=== PATIENT | female | born 1935 | race Caucasian/White ===

== ENCOUNTER 2018-02-05 19:24 | Emergency (ER) | payer MEDICARE ==
--- NOTE | 2018-02-05 20:42 | RAD ---
PA AND LATERAL CHEST: HISTORY: Cough. COMPARISON: 07/20/2012 FINDINGS: Heart size is at the upper limits of normal. There are atherosclerotic changes of the aorta. The jeanette ngs are clear of infiltrates. There are calcified right hilar and paratracheal nodes. IMPRESSION: Borderline heart size. No active intrathoracic disease. POS: [facility]
[2018-02-05 20:50] LABS: #Basophils 0.1 thou/uL (0.0-0.2); #Eosinphils 0.3 thou/uL (0.0-0.7); #Lymphocytes 1.9 thou/uL (1.20-3.40); #Monocytes 0.7 thou/uL (0.11-0.59); #Neutrophils 4.1 thou/uL (1.40-6.50); %Eosinophils 4.7 % (0.0-10.0); %Lymphocytes 27.3 % (21.0-51.0); %Monocytes 9.7 % (0.0-10.0); %Neutrophils 57.3 % (42.0-75.0); Hemoglobin 13.5 g/dL (12.0-16.0); Mean Corpuscular HGB CONC 34.5 g/dL (32.0-36.0); Mean Corpuscular Hemoglobin 31.2 pg (27.0-31.0); Mean Corpuscular Volume 90.5 fL (78.0-98.0); Mean Platelet Volume 9.1 fL (7.4-10.4); Platelet Count 243 thou/uL (130-400); RBC Distribution Width 12.2 % (11.5-14.5); Red Blood Cell (RBC) Count 4.34 mill/uL (4.20-5.40); White Blood Cell (WBC) Count 7.1 thou/uL (4.8-10.8)
[2018-02-05 21:06] LABS: ALT (SGPT) 13 U/L (8-55); AST (SGOT) 21 U/L (5-34); Alkaline Phosphatase 68 U/L (40-150); Anion Gap 13 mmol/L (10-20); BUN (Urea Nitrogen) 23 mg/dL (9.8-20.1); Bilirubin, Total 0.3 mg/dL (0.2-1.2); Calc. Creatinine Clearance 0 mL/min (70-130); Calcium 9.4 mg/dL (7.8-10.44); Carbon Dioxide 28 mmol/L (23-31); Chloride 95 mmol/L (98-107); Estimated GFR-MDRD 43; Glucose 91 mg/dL (83-110); Potassium 4.4 mmol/L (3.5-5.1); Sodium 132 mmol/L (136-145)
[2018-02-05 23:11] LABS: Bilirubin Negative (Negative); Blood, Urine Negative (Negative); Clarity CLEAR (Clear); Glucose, Urine (Dipstick) Negative (Negative); Leukocyte Small (Negative); Nitrite Negative (Negative); Protein, Urine (Dipstick) Negative (Neg-Trace); Specific Gravity, Urine 1.006 (1.002-1.036); Urobilinogen 0.2 mg/dL (0.2-1.0); pH, Urine 7.5 (5.0-9.0)
[2018-02-05 23:12] LABS: Bacteria/HPF None Seen HPF (None Seen); Hyaline Casts/LPF 0-3 HYALINE CAST LPF (0-3 Hyaline); Pathc Cast-AUWi Flag 0.72 (0-2.49); RBC/HPF 0-3 HPF (0-3); Squamous Epithelial 0-3 HPF (0-3)
--- NOTE | 2018-02-10 15:28 | EKG ---
Test Reason : Blood Pressure : / mmHG Vent. Rate : 066 BPM Atrial Rate : 066 BPM P-R Int : 156 ms QRS Dur : 084 ms QT Int : 416 ms P-R-T Axes : 036 -02 020 degrees QTc Int : 436 ms Normal sinus rhythm with sinus arrhythmia Cannot rule out Anterior infarct , age undetermined Abnormal ECG Confirmed by MIRTHA VERDUZCO M.D. ([id number]), editorial assistant DEANNA CASTILLO ([id number]) on 02/10/2018 3:28:21 PM Referred By: Confirmed By:MIRTHA VERDUZCO M.D.
== END 2018-02-06 00:05 | disposition home or self-care (01) ==
LOC: ERS 19:24
DX: J06.9 Acute upper respiratory infection, unspecified (principal); J44.9 Chronic obstructive pulmonary disease, unspecified; Z87.891 Personal history of nicotine dependence; Z79.899 Other long term (current) drug therapy
CPT/HCPCS: 71046; 80053; 81003; 81015; 85025; 87086; 93005; 94640; J7620

== ENCOUNTER 2019-03-03 13:14 | Emergency (ER) | payer MEDICARE, MEDICAID ==
[2019-03-03] MEDS ORDERED: Albuterol Sulfate 2.5 mg/3 ml Neb ONE (13:56)
--- NOTE | 2019-03-03 14:00 | RAD ---
EXAM: Portable chest PROVIDED CLINICAL HISTORY: Cough COMPARISON: 05/17/2018 FINDINGS: Cardiac and mediastinal silhouette is within normal limits. No focal consolidation, pleural fluid or pneumothorax evident. IMPRESSION: No evidence for an acute cardiopulmonary process.
[2019-03-03 14:03] LABS: #Basophils 0.1 thou/uL (0.0-0.2); #Eosinphils 0.1 thou/uL (0.0-0.7); #Lymphocytes 1.6 thou/uL (1.20-3.40); #Monocytes 0.9 thou/uL (0.11-0.59); #Neutrophils 6.2 thou/uL (1.40-6.50); %Lymphocytes 17.5 % (21.0-51.0); %Monocytes 10.4 % (0.0-10.0); Hemoglobin 12.8 g/dL (12.0-16.0); Mean Corpuscular HGB CONC 32.7 g/dL (32.0-36.0); Mean Corpuscular Hemoglobin 29.2 pg (27.0-31.0); Mean Corpuscular Volume 89.2 fL (78.0-98.0); Mean Platelet Volume 8.8 fL (7.4-10.4); Platelet Count 268 thou/uL (130-400); RBC Distribution Width 12.1 % (11.5-14.5); Red Blood Cell (RBC) Count 4.39 mill/uL (4.20-5.40); White Blood Cell (WBC) Count 8.8 thou/uL (4.8-10.8)
[2019-03-03 14:04] LABS: Actual Bicarbonate (HCO3a) 27.1 mEq/L (22-28); Analyzer IN Cardio ER; Base Excess (BEa) 2.3 mEq/L (-2.0 to +3.0); CO2 Tension 42.4 mmHg (35.0-45.0); Calcium, Ionized 1.22 mmol/L (1.12-1.30); Carboxyhemoglobin (COHb) 0.6 gm% (0.0-3.0); Hemoglobin (Hb) 13.4 g/dL (12.0-16.0); O2 Tension (PaO2) 66.9 mmHg (> 60.0); Potassium - ABG Lab 3.98 mmol/L (3.70-5.30); pH, Arterial 7.42 (7.35-7.45)
[2019-03-03 14:06] LABS: Puncture Site RRA
[2019-03-03] MEDS ORDERED: Dexamethasone 4 mg/ml Vial ONE (14:22)
[2019-03-03 14:27] LABS: ALT (SGPT) 10 U/L (8-55); AST (SGOT) 16 U/L (5-34); Albumin 3.9 g/dL (3.4-4.8); Alkaline Phosphatase 77 U/L (40-110); Anion Gap 11 mmol/L (10-20); BUN (Urea Nitrogen) 19 mg/dL (9.8-20.1); Bilirubin, Total 0.5 mg/dL (0.2-1.2); Calc. Creatinine Clearance 0 mL/min (70-130); Calcium 9.3 mg/dL (7.8-10.44); Carbon Dioxide 28 mmol/L (23-31); Chloride 100 mmol/L (98-107); Estimated GFR-MDRD 52; Globulin 3.3 g/dL (2.4-3.5); Glucose 104 mg/dL (83-110); Potassium 4.4 mmol/L (3.5-5.1); Protein, Total 7.2 g/dL (6.0-8.3); Sodium 135 mmol/L (136-145)
== END 2019-03-03 15:21 | disposition home or self-care (01) ==
LOC: ERS 13:14
DX: J44.1 Chronic obstructive pulmonary disease with (acute) exacerbation (principal); M79.7 Fibromyalgia; F41.9 Anxiety disorder, unspecified; F32.9 Major depressive disorder, single episode, unspecified; Z87.891 Personal history of nicotine dependence
CPT/HCPCS: 36415; 71045; 80053; 82805; 83880; 84484; 85025; 87804; 93005; 94644; 96374; J1100; J7611; J7620

== ENCOUNTER 2020-08-21 16:58 | Emergency (ER) | payer MEDICARE, MEDICAID ==
[2020-08-21 18:29] LABS: #Basophils 0.1 thou/uL (0.0-0.2); #Eosinphils 0.2 thou/uL (0.0-0.7); #Lymphocytes 1.7 thou/uL (1.20-3.40); #Monocytes 0.6 thou/uL (0.11-0.59); %Basophils 0.8 % (0.0-1.0); %Eosinophils 2.2 % (0.0-10.0); %Lymphocytes 22.7 % (21.0-51.0); %Monocytes 7.7 % (0.0-10.0); %Neutrophils 66.7 % (42.0-75.0); Hemoglobin 13.8 g/dL (12.0-16.0); Mean Corpuscular HGB CONC 32.3 g/dL (32.0-36.0); Mean Corpuscular Hemoglobin 29.6 pg (27.0-31.0); Mean Corpuscular Volume 91.5 fL (78.0-98.0); Mean Platelet Volume 9.8 fL (7.4-10.4); Platelet Count 270 thou/uL (130-400); RBC Distribution Width 13.1 % (11.5-14.5); Red Blood Cell (RBC) Count 4.67 mill/uL (4.20-5.40); White Blood Cell (WBC) Count 7.5 thou/uL (4.8-10.8)
[2020-08-21 18:51] LABS: ALT (SGPT) 34 U/L (8-55); AST (SGOT) 39 U/L (5-34); Albumin 4.5 g/dL (3.4-4.8); Alkaline Phosphatase 101 U/L (40-110); Anion Gap 14 mmol/L (10-20); BUN (Urea Nitrogen) 15 mg/dL (9.8-20.1); Bilirubin, Total 0.6 mg/dL (0.2-1.2); Calc. Creatinine Clearance 0 mL/min (70-130); Calcium 9.7 mg/dL (7.8-10.44); Carbon Dioxide 29 mmol/L (23-31); Chloride 95 mmol/L (98-107); Globulin 4.3 g/dL (2.4-3.5); Glucose 105 mg/dL (83-110); Potassium 4.5 mmol/L (3.5-5.1); Protein, Total 8.8 g/dL (5.8-8.1); Sodium 133 mmol/L (136-145)
[2020-08-21] MEDS ORDERED: Furosemide 40 MG/4 ML VIAL ONE (20:16)
== END 2020-08-21 21:25 | disposition home or self-care (01) ==
LOC: ERS 16:58
DX: I13.0 Hypertensive heart and chronic kidney disease with heart failure and stage 1 through stage 4 chronic kidney disease, or unspecified chronic kidney disease (principal); I50.9 Heart failure, unspecified; N18.30 Chronic kidney disease, stage 3 unspecified; R06.2 Wheezing; K90.0 Celiac disease; J44.9 Chronic obstructive pulmonary disease, unspecified; Z87.891 Personal history of nicotine dependence; Z79.899 Other long term (current) drug therapy; Z79.82 Long term (current) use of aspirin
CPT/HCPCS: 36415; 71045; 80053; 83880; 84484; 85025; 93005; 96374; J1940; J7620

== ENCOUNTER 2021-01-20 19:55 | Emergency (ER) | payer MEDICARE, OTHER ==
[~2021-01-20 19:55] MED LIST: Iopamidol-370 76% 500 ML 1 ML ONE
[2021-01-20] MEDS ORDERED: Pantoprazole 40 MG VIAL ONE (21:58)
[2021-01-20 22:00] LABS: Bilirubin Negative (Negative); Blood, Urine 3+ (Negative); Clarity Clear (Clear); Glucose, Urine (Dipstick) Normal (Negative); Ketone, Urine Negative (Negative); Leukocyte 75 Leu/uL (Negative); Nitrite Negative (Negative); Protein, Urine (Dipstick) Negative (Neg-Trace); RBC/HPF 0-3 HPF (0-3); Specific Gravity, Urine 1.007 (1.002-1.036); Squamous Epithelial 0-3 HPF (0-3); Urobilinogen Normal mg/dL (Less than 2); pH, Urine 7.5 (5.0-9.0)
[2021-01-20 22:05] LABS: #Basophils 0.1 thou/uL (0.0-0.2); #Eosinphils 0.2 thou/uL (0.0-0.7); #Lymphocytes 2.1 thou/uL (1.20-3.40); #Monocytes 0.7 thou/uL (0.11-0.59); %Basophils 0.6 % (0.0-1.0); %Eosinophils 2.6 % (0.0-10.0); %Lymphocytes 25.8 % (21.0-51.0); %Monocytes 8.8 % (0.0-10.0); %Neutrophils 62.2 % (42.0-75.0); Hemoglobin 13.8 g/dL (12.0-16.0); Mean Corpuscular HGB CONC 32.4 g/dL (32.0-36.0); Mean Corpuscular Hemoglobin 31.2 pg (27.0-31.0); Mean Corpuscular Volume 96.3 fL (78.0-98.0); Platelet Count 298 thou/uL (130-400); RBC Distribution Width 12.5 % (11.5-14.5); Red Blood Cell (RBC) Count 4.43 mill/uL (4.20-5.40)
[2021-01-20 22:07] LABS: AST (SGOT) 20 U/L (5-34); Albumin 3.4 g/dL (3.4-4.8); Alkaline Phosphatase 68 U/L (40-110); Anion Gap 11 mmol/L (10-20); BUN (Urea Nitrogen) 11 mg/dL (9.8-20.1); Bilirubin, Total 0.2 mg/dL (0.2-1.2); Calc. Creatinine Clearance 0 mL/min (70-130); Calcium 9.3 mg/dL (7.8-10.44); Carbon Dioxide 25 mmol/L (23-31); Chloride 99 mmol/L (98-107); Globulin 4.1 g/dL (2.4-3.5); Glucose 95 mg/dL (83-110); Potassium 4.5 mmol/L (3.5-5.1); Protein, Total 7.5 g/dL (5.8-8.1); Sodium 130 mmol/L (136-145)
[2021-01-20 22:09] LABS: Bacteria/HPF 1+ HPF (None Seen); WBC/HPF 0-3 HPF (0-3)
[2021-01-20 22:16] LABS: ALT (SGPT) 14 U/L (8-55); Lipase 56 U/L (8-78)
[2021-01-20 22:34] LABS: INR-International Normal Ratio 0.9; PTT 31.9 sec (22.9-36.1); Prothrombin Time 12.2 sec (12.0-14.7)
[2021-01-21 00:30] LABS: Hemoglobin 13.3 g/dL (12.0-16.0)
== END 2021-01-21 01:03 | disposition home or self-care (01) ==
LOC: ERS 19:55
DX: K92.2 Gastrointestinal hemorrhage, unspecified (principal); I13.0 Hypertensive heart and chronic kidney disease with heart failure and stage 1 through stage 4 chronic kidney disease, or unspecified chronic kidney disease; I50.9 Heart failure, unspecified; N18.30 Chronic kidney disease, stage 3 unspecified; J44.9 Chronic obstructive pulmonary disease, unspecified; Z87.891 Personal history of nicotine dependence; Z79.899 Other long term (current) drug therapy
CPT/HCPCS: 36415; 74177; 80053; 81003; 81015; 83690; 83735; 85025; 85610; 85730; 86850; 86900; 86901; 93005; 96374; C9113; Q9967

== ENCOUNTER 2022-01-01 01:18 | Emergency (ER) | payer MEDICARE ==
[2022-01-01 02:07] LABS: #Eosinphils 0.1 thou/uL (0.0-0.7); #Lymphocytes 1.8 thou/uL (1.20-3.40); #Monocytes 0.8 thou/uL (0.11-0.59); #Neutrophils 6.8 thou/uL (1.40-6.50); %Basophils 0.4 % (0.0-1.0); %Eosinophils 1.4 % (0.0-10.0); %Lymphocytes 18.9 % (21.0-51.0); %Monocytes 8.6 % (0.0-10.0); %Neutrophils 70.7 % (42.0-75.0); Hemoglobin 12.9 g/dL (12.0-16.0); Mean Corpuscular HGB CONC 32.6 g/dL (32.0-36.0); Mean Corpuscular Hemoglobin 30.6 pg (27.0-31.0); Mean Platelet Volume 9.7 fL (7.4-10.4); Platelet Count 284 10x3/uL (130-400); RBC Distribution Width 12.3 % (11.5-14.5); Red Blood Cell (RBC) Count 4.21 mill/uL (4.20-5.40); White Blood Cell (WBC) Count 9.6 10x3/uL (4.8-10.8)
[2022-01-01 02:28] LABS: ALT (SGPT) 19 U/L (8-55); AST (SGOT) 18 U/L (5-34); Albumin 3.6 g/dL (3.4-4.8); Alkaline Phosphatase 82 U/L (40-110); Anion Gap 10 mmol/L (10-20); BUN (Urea Nitrogen) 16 mg/dL (9.8-20.1); Bilirubin, Total 0.3 mg/dL (0.2-1.2); Calc. Creatinine Clearance 0 mL/min (70-130); Calcium 9.3 mg/dL (7.8-10.44); Carbon Dioxide 31 mmol/L (23-31); Chloride 103 mmol/L (98-107); Estimated GFR 48; Globulin 4.1 g/dL (2.4-3.5); Glucose 111 mg/dL (83-110); Protein, Total 7.7 g/dL (5.8-8.1); Sodium 140 mmol/L (136-145)
[2022-01-01 03:41] LABS: Bilirubin Negative (Negative); Blood, Urine Negative (Negative); Clarity Clear (Clear); Glucose, Urine (Dipstick) Normal (Negative); Ketone, Urine Negative (Negative); Leukocyte Negative Leu/uL (Negative); Nitrite Negative (Negative); Protein, Urine (Dipstick) Negative (Neg-Trace); Specific Gravity, Urine 1.007 (1.002-1.036); Urobilinogen Normal mg/dL (Less than 2); pH, Urine 7.5 (5.0-9.0)
== END 2022-01-01 04:50 ==
LOC: ERS 01:18
DX: R60.0 Localized edema (principal); I13.0 Hypertensive heart and chronic kidney disease with heart failure and stage 1 through stage 4 chronic kidney disease, or unspecified chronic kidney disease; I50.9 Heart failure, unspecified; N18.30 Chronic kidney disease, stage 3 unspecified; J44.9 Chronic obstructive pulmonary disease, unspecified; Z79.899 Other long term (current) drug therapy
CPT/HCPCS: 71045; 72170; 80053; 81003; 83880; 85025; 93005

== ENCOUNTER 2022-02-07 12:34 | Inpatient (IN) | payer MEDICARE, MEDICAID ==
[2022-02-07 13:16] LABS: #Eosinphils 0.3 thou/uL (0.0-0.7); #Lymphocytes 1.6 thou/uL (1.20-3.40); #Monocytes 1.1 thou/uL (0.11-0.59); #Neutrophils 6.3 thou/uL (1.40-6.50); %Basophils 0.4 % (0.0-1.0); %Eosinophils 3.7 % (0.0-10.0); %Lymphocytes 17.3 % (21.0-51.0); %Monocytes 12.1 % (0.0-10.0); %Neutrophils 66.5 % (42.0-75.0); Hemoglobin 12.8 g/dL (12.0-16.0); Mean Corpuscular HGB CONC 34.9 g/dL (32.0-36.0); Mean Corpuscular Hemoglobin 32.1 pg (27.0-31.0); Mean Corpuscular Volume 91.9 fl (78.0-98.0); Mean Platelet Volume 8.6 fL (7.4-10.4); Platelet Count 362 10x3/uL (130-400); RBC Distribution Width 12.7 % (11.5-14.5); Red Blood Cell (RBC) Count 3.99 mill/uL (4.20-5.40); White Blood Cell (WBC) Count 9.4 10x3/uL (4.8-10.8)
[2022-02-07 13:19] LABS: Actual Bicarbonate (HCO3v) 32 mEq/L (22-28); Analyzer IN Cardio ER; Base Excess 6.6 mEq/L (-2.0 to +3.0); Calcium, Ionized (venous) 1.14 mmol/L (1.16-1.32); Chloride (VBG) 96 mmol/L (98-106); Hemoglobin (Hb) 13.4 g/dL (11.7-16.1); pH (venous) 7.43 (7.32-7.43)
[2022-02-07 13:39] LABS: ALT (SGPT) 22 U/L (8-55); AST (SGOT) 22 U/L (5-34); Albumin 3.1 g/dL (3.4-4.8); Alkaline Phosphatase 98 U/L (40-110); Anion Gap 13 mmol/L (10-20); BUN (Urea Nitrogen) 5 mg/dL (9.8-20.1); Bilirubin, Total 0.6 mg/dL (0.2-1.2); Calc. Creatinine Clearance 0 mL/min (70-130); Calcium 9.5 mg/dL (7.8-10.44); Carbon Dioxide 28 mmol/L (23-31); Estimated GFR 68; Globulin 4.7 g/dL (2.4-3.5); Glucose 125 mg/dL (83-110); Potassium 3.6 mmol/L (3.5-5.1); Protein, Total 7.8 g/dL (5.8-8.1); Sodium 133 mmol/L (136-145)
[2022-02-07 13:42] LABS: Chloride 96 mmol/L (98-107)
[2022-02-07 13:47] LABS: SARS-CoV-2 NAA Rapid Test Not Detected (NotDetected)
[2022-02-07] MEDS ORDERED: Sodium Chloride 0.9% 100 ML ONE (14:40)
[2022-02-07] MEDS ORDERED: cefTRIAXone\\ROCEPHIN 1 GM VIAL ONE (14:40)
[2022-02-07] MEDS ORDERED: Enoxaparin Sodium 40 MG/0.4 ML SYRINGE SC SCH (14:45)
[2022-02-07] MEDS ORDERED: Non-Formulary Item 1 EACH (Acetaminophen [Tylenol] 325 MG Capsule) PO PRN (14:56)
[2022-02-07] MEDS ORDERED: Albuterol 200 PUFF (6.7GM INHALER) INH PRN (14:56)
[2022-02-07] MEDS ORDERED: Azithromycin 500 MG VIAL ONE (15:15)
[2022-02-07] MEDS ORDERED: Furosemide 20 MG/2 ML VIAL SLOW IVP SCH (15:30)
[2022-02-07 15:34] LABS: Phosphorus 2.8 mg/dL (2.3-4.7)
[2022-02-07 18:31] VITALS: BMI 47.9
[2022-02-07] MEDS: Mometasone/Formoterol 200/5 60 PUFF INH SCH (19:04)
[2022-02-07] MEDS: Nystatin Powder 15 GM BOT TOP SCH (21:00)
[2022-02-07] MEDS ORDERED: Non-Formulary Item 1 EACH (Fluticasone Propion/Salmeterol [Advair Diskus 250/50] 1 EACH B INH SCH (21:00)
[2022-02-07] MEDS: Carvedilol 6.25 MG TAB PO SCH (21:41)
[2022-02-07] MEDS: methylPREDNISolone Sod Succ 40 MG VIAL IVP SCH (21:42)
[2022-02-07] MEDS: Famotidine 20 MG TAB PO SCH (21:42)
[2022-02-08] MEDS: methylPREDNISolone Sod Succ 40 MG VIAL IVP SCH ×4 (00:06→21:42)
[2022-02-08] MEDS: ALPRAZolam 0.5 MG TAB PO PRN ×2 (03:12→21:55)
[2022-02-08] MEDS: Levothyroxine Sodium 100 MCG TAB PO SCH (05:25)
[2022-02-08] MEDS: Mometasone/Formoterol 200/5 60 PUFF INH SCH ×2 (08:02→19:02)
[2022-02-08] MEDS ORDERED: Furosemide 40 MG TAB PO SCH (09:00)
[2022-02-08] MEDS: Carvedilol 6.25 MG TAB PO SCH ×2 (11:04→18:31)
[2022-02-08] MEDS: Cyanocobalamin (Vitamin B-12) 1,000 MCG TAB PO SCH (11:10)
[2022-02-08] MEDS: Calcium Carbonate 600 MG + Vit D TAB PO SCH (11:11)
[2022-02-08] MEDS: Mirtazapine 15 MG Soltab PO SCH (11:12)
[2022-02-08] MEDS: Saccharomyces boulardii 250 MG CAP PO SCH (11:13)
[2022-02-08] MEDS: Enoxaparin Sodium 40 MG/0.4 ML SYRINGE SC SCH (11:15)
[2022-02-08] MEDS: Multivitamin W/ Minerals 1 TAB PO SCH (11:15)
[2022-02-08] MEDS: Famotidine 20 MG TAB PO SCH (11:15)
[2022-02-08] MEDS: Nystatin Powder 15 GM BOT TOP SCH ×2 (11:16→21:43)
[2022-02-08 11:33] LABS: Actual Bicarbonate (HCO3v) 29 mEq/L (22-28); Base Excess 4.2 mEq/L (-2.0 to +3.0); Calcium, Ionized (venous) 1.14 mmol/L (1.16-1.32); Chloride (VBG) 96 mmol/L (98-106); Hemoglobin (Hb) 12.7 g/dL (11.7-16.1); Potassium (VBG) 3.97 mmol/L (3.70-5.30); Sodium 133.8 mmol/L (133-146); pH (venous) 7.44 (7.32-7.43)
[2022-02-08] MEDS: Acetaminophen 500 MG TAB PO PRN (11:34)
[2022-02-08] MEDS: guaiFENesin ER 600 MG TAB PO SCH (21:43)
[2022-02-09] MEDS ORDERED: Sodium Chloride 0.65% Nasal 44 ML BOT EA NARE PRN (00:51)
[2022-02-09] MEDS ORDERED: Polyethylene Glycol OPTH DROP 15 ML BOT EA EYE PRN (00:52)
[2022-02-09] MEDS: Acetaminophen 500 MG TAB PO PRN (01:32)
[2022-02-09 05:04] LABS: #Lymphocytes 1.1 thou/uL (1.20-3.40); #Monocytes 0.4 thou/uL (0.11-0.59); %Eosinophils 0.1 % (0.0-10.0); %Lymphocytes 10.8 % (21.0-51.0); %Monocytes 3.4 % (0.0-10.0); %Neutrophils 85.6 % (42.0-75.0); Hemoglobin 11.2 g/dL (12.0-16.0); Mean Corpuscular HGB CONC 31.6 g/dL (32.0-36.0); Mean Corpuscular Hemoglobin 28.9 pg (27.0-31.0); Mean Corpuscular Volume 91.4 fl (78.0-98.0); Mean Platelet Volume 9.4 fL (7.4-10.4); Platelet Count 383 10x3/uL (130-400); RBC Distribution Width 12.8 % (11.5-14.5); Red Blood Cell (RBC) Count 3.87 mill/uL (4.20-5.40); White Blood Cell (WBC) Count 10.5 10x3/uL (4.8-10.8)
[2022-02-09 05:13] LABS: Anion Gap 10 mmol/L (10-20); BUN (Urea Nitrogen) 11 mg/dL (9.8-20.1); Calc. Creatinine Clearance 84 mL/min (70-130); Calcium 9.6 mg/dL (7.8-10.44); Carbon Dioxide 30 mmol/L (23-31); Chloride 96 mmol/L (98-107); Estimated GFR 70; Glucose 162 mg/dL (83-110); Potassium 4.3 mmol/L (3.5-5.1); Sodium 132 mmol/L (136-145)
[2022-02-09] MEDS: Mometasone/Formoterol 200/5 60 PUFF INH SCH ×2 (05:24→18:39)
[2022-02-09] MEDS: Levothyroxine Sodium 100 MCG TAB PO SCH (06:17)
[2022-02-09] MEDS: Carvedilol 6.25 MG TAB PO SCH ×2 (10:30→18:23)
[2022-02-09] MEDS: Cyanocobalamin (Vitamin B-12) 1,000 MCG TAB PO SCH (10:30)
[2022-02-09] MEDS: Enoxaparin Sodium 40 MG/0.4 ML SYRINGE SC SCH (10:30)
[2022-02-09] MEDS: Calcium Carbonate 600 MG + Vit D TAB PO SCH (10:30)
[2022-02-09] MEDS: Furosemide 40 MG TAB PO SCH ×2 (10:31→14:54)
[2022-02-09] MEDS: methylPREDNISolone Sod Succ 40 MG VIAL IVP SCH (10:32)
[2022-02-09] MEDS: guaiFENesin ER 600 MG TAB PO SCH ×2 (10:32→21:02)
[2022-02-09] MEDS: Nystatin Powder 15 GM BOT TOP SCH ×2 (10:33→21:02)
[2022-02-09] MEDS: Multivitamin W/ Minerals 1 TAB PO SCH (10:33)
[2022-02-09] MEDS: Mirtazapine 15 MG Soltab PO SCH (10:33)
[2022-02-09] MEDS: Saccharomyces boulardii 250 MG CAP PO SCH (10:34)
[2022-02-09] MEDS: Acetaminophen 325 MG TAB PO PRN (10:52)
[2022-02-09] MEDS ORDERED: ALPRAZolam 0.5 MG TAB PO PRN (13:24)
[2022-02-09] MEDS ORDERED: hydrALAZINE 25 MG TAB PO PRN (13:25)
[2022-02-09] MEDS ORDERED: Amlodipine 10 MG TAB PO SCH (13:30)
[2022-02-09] MEDS: ALPRAZolam 0.5 MG TAB PO PRN (14:54)
[2022-02-09] MEDS: predniSONE 20 MG TAB PO SCH (18:23)
[2022-02-10] MEDS: ALPRAZolam 0.5 MG TAB PO PRN ×2 (01:58→14:22)
[2022-02-10] MEDS: Levothyroxine Sodium 100 MCG TAB PO SCH (05:55)
[2022-02-10] MEDS: Mometasone/Formoterol 200/5 60 PUFF INH SCH ×2 (07:21→18:38)
[2022-02-10 07:26] LABS: #Lymphocytes 1.4 thou/uL (1.20-3.40); #Monocytes 0.8 thou/uL (0.11-0.59); %Basophils 0.3 % (0.0-1.0); %Eosinophils 0.1 % (0.0-10.0); %Lymphocytes 12.6 % (21.0-51.0); %Monocytes 6.9 % (0.0-10.0); %Neutrophils 80.1 % (42.0-75.0); Hemoglobin 11.8 g/dL (12.0-16.0); Mean Corpuscular HGB CONC 31.9 g/dL (32.0-36.0); Mean Corpuscular Hemoglobin 29.2 pg (27.0-31.0); Mean Corpuscular Volume 91.6 fl (78.0-98.0); Mean Platelet Volume 9.2 fL (7.4-10.4); Platelet Count 419 10x3/uL (130-400); Red Blood Cell (RBC) Count 4.03 mill/uL (4.20-5.40); White Blood Cell (WBC) Count 11.2 10x3/uL (4.8-10.8)
[2022-02-10 07:37] LABS: Anion Gap 11 mmol/L (10-20); BUN (Urea Nitrogen) 18 mg/dL (9.8-20.1); Calc. Creatinine Clearance 71 mL/min (70-130); Calcium 9.6 mg/dL (7.8-10.44); Carbon Dioxide 31 mmol/L (23-31); Chloride 100 mmol/L (98-107); Estimated GFR 57; Glucose 119 mg/dL (83-110); Sodium 138 mmol/L (136-145)
[2022-02-10] MEDS: Saccharomyces boulardii 250 MG CAP PO SCH (08:11)
[2022-02-10] MEDS: Mirtazapine 15 MG Soltab PO SCH (08:11)
[2022-02-10] MEDS: guaiFENesin ER 600 MG TAB PO SCH ×2 (08:11→20:51)
[2022-02-10] MEDS: Carvedilol 6.25 MG TAB PO SCH ×2 (08:11→16:18)
[2022-02-10] MEDS: Amlodipine 10 MG TAB PO SCH (08:11)
[2022-02-10] MEDS: Calcium Carbonate 600 MG + Vit D TAB PO SCH (08:12)
[2022-02-10] MEDS: Multivitamin W/ Minerals 1 TAB PO SCH (08:12)
[2022-02-10] MEDS: Furosemide 40 MG TAB PO SCH ×2 (08:12→13:27)
[2022-02-10] MEDS: Cyanocobalamin (Vitamin B-12) 1,000 MCG TAB PO SCH (08:12)
[2022-02-10] MEDS: predniSONE 20 MG TAB PO SCH ×2 (08:12→16:18)
[2022-02-10] MEDS: Nystatin Powder 15 GM BOT TOP SCH ×2 (08:12→20:53)
[2022-02-10] MEDS: Enoxaparin Sodium 40 MG/0.4 ML SYRINGE SC SCH (08:12)
[2022-02-10] MEDS: Acetaminophen 325 MG TAB PO PRN (18:26)
[2022-02-11] MEDS: Levothyroxine Sodium 100 MCG TAB PO SCH (04:43)
[2022-02-11 06:23] LABS: #Lymphocytes 2.4 thou/uL (1.20-3.40); #Monocytes 1.2 thou/uL (0.11-0.59); #Neutrophils 8.3 thou/uL (1.40-6.50); %Basophils 0.1 % (0.0-1.0); %Eosinophils 0.1 % (0.0-10.0); %Lymphocytes 20.3 % (21.0-51.0); %Monocytes 9.8 % (0.0-10.0); %Neutrophils 69.7 % (42.0-75.0); Hemoglobin 12.7 g/dL (12.0-16.0); Mean Corpuscular HGB CONC 31.7 g/dL (32.0-36.0); Mean Corpuscular Volume 91.3 fl (78.0-98.0); Platelet Count 425 10x3/uL (130-400); RBC Distribution Width 13.2 % (11.5-14.5); Red Blood Cell (RBC) Count 4.39 mill/uL (4.20-5.40); White Blood Cell (WBC) Count 11.9 10x3/uL (4.8-10.8)
[2022-02-11 06:39] LABS: Anion Gap 10 mmol/L (10-20); BUN (Urea Nitrogen) 23 mg/dL (9.8-20.1); Calc. Creatinine Clearance 59 mL/min (70-130); Calcium 9.4 mg/dL (7.8-10.44); Carbon Dioxide 27 mmol/L (23-31); Chloride 101 mmol/L (98-107); Estimated GFR 46; Glucose 110 mg/dL (83-110); Potassium 3.8 mmol/L (3.5-5.1); Sodium 134 mmol/L (136-145)
[2022-02-11] MEDS: Furosemide 40 MG TAB PO SCH ×2 (08:02→13:57)
[2022-02-11] MEDS: Amlodipine 10 MG TAB PO SCH (08:02)
[2022-02-11] MEDS: Enoxaparin Sodium 40 MG/0.4 ML SYRINGE SC SCH (08:02)
[2022-02-11] MEDS: guaiFENesin ER 600 MG TAB PO SCH (08:02)
[2022-02-11] MEDS: Cyanocobalamin (Vitamin B-12) 1,000 MCG TAB PO SCH (08:02)
[2022-02-11] MEDS: Multivitamin W/ Minerals 1 TAB PO SCH (08:02)
[2022-02-11] MEDS: Carvedilol 6.25 MG TAB PO SCH ×2 (08:02→16:36)
[2022-02-11] MEDS: Saccharomyces boulardii 250 MG CAP PO SCH (08:02)
[2022-02-11] MEDS: Calcium Carbonate 600 MG + Vit D TAB PO SCH (08:03)
[2022-02-11] MEDS: Nystatin Powder 15 GM BOT TOP SCH (08:03)
[2022-02-11] MEDS: Mirtazapine 15 MG Soltab PO SCH (08:03)
[2022-02-11] MEDS: predniSONE 20 MG TAB PO SCH ×2 (08:03→16:36)
[2022-02-11 08:25] VITALS: TEMP 98.3
[2022-02-11] MEDS: Mometasone/Formoterol 200/5 60 PUFF INH SCH ×2 (08:57→18:24)
[2022-02-11] MEDS ORDERED: FLU VACC QS2022-23(65YR UP)/PF 240 MCG/0.7 ML SYRINGE IM ONE (09:00)
[2022-02-11] MEDS: ALPRAZolam 0.5 MG TAB PO PRN (09:44)
[2022-02-11 16:38] VITALS: BP 157/98
[2022-02-12] MEDS ORDERED: Furosemide 40 MG TAB PO SCH (07:30)
== END 2022-02-11 19:40 | DRG 177 ==
LOC: ERS 12:34 → SUATTDRO 12:34 → 2NO 14:35 → OBSVTOIN 15:03 → T4-B 02-09 20:52
PROVIDERS: ADMIT Internal Medicine; ATTEND Hospitalist
DX: J69.0 Pneumonitis due to inhalation of food and vomit (principal); I50.33 Acute on chronic diastolic (congestive) heart failure; J96.01 Acute respiratory failure with hypoxia; I13.0 Hypertensive heart and chronic kidney disease with heart failure and stage 1 through stage 4 chronic kidney disease, or unspecified chronic kidney disease; J44.1 Chronic obstructive pulmonary disease with (acute) exacerbation; Z68.42 Body mass index [BMI] 45.0-49.9, adult; Z20.822 Contact with and (suspected) exposure to COVID-19; K90.0 Celiac disease; F41.8 Other specified anxiety disorders; N18.30 Chronic kidney disease, stage 3 unspecified; M79.7 Fibromyalgia; K21.9 Gastro-esophageal reflux disease without esophagitis; E66.01 Morbid (severe) obesity due to excess calories; F32.A Depression, unspecified; Z87.891 Personal history of nicotine dependence; Z88.0 Allergy status to penicillin; Z88.2 Allergy status to sulfonamides; Z88.5 Allergy status to narcotic agent; Z88.8 Allergy status to other drugs, medicaments and biological substances; Z79.899 Other long term (current) drug therapy; Z79.51 Long term (current) use of inhaled steroids; Z79.890 Hormone replacement therapy; Z90.49 Acquired absence of other specified parts of digestive tract
CPT/HCPCS: 36415; 36416; 71045; 80048; 80053; 82805; 83605; 83735; 83880; 84100; 84145; 84484; 85025; 85379; 87040; 93005; 94640; 94664; 96365; 96367; J0456; J0696; J1650; J1956; J2920; J3490; J7512; J7620

== ENCOUNTER 2022-05-14 05:21 | Inpatient (IN) | payer MEDICARE, MEDICAID ==
[2022-05-14 06:10] LABS: #Eosinphils 0.2 thou/uL (0.0-0.7); #Lymphocytes 1.8 thou/uL (1.20-3.40); #Monocytes 0.9 thou/uL (0.11-0.59); #Neutrophils 5.3 thou/uL (1.40-6.50); %Basophils 0.6 % (0.0-1.0); %Eosinophils 2.1 % (0.0-10.0); %Lymphocytes 22.2 % (21.0-51.0); %Neutrophils 64.1 % (42.0-75.0); Hemoglobin 12.7 g/dL (12.0-16.0); Mean Corpuscular HGB CONC 31.4 g/dL (32.0-36.0); Mean Corpuscular Hemoglobin 26.8 pg (27.0-31.0); Mean Corpuscular Volume 85.1 fl (78.0-98.0); Mean Platelet Volume 9.3 fL (7.4-10.4); Platelet Count 286 10x3/uL (130-400); Red Blood Cell (RBC) Count 4.76 mill/uL (4.20-5.40); White Blood Cell (WBC) Count 8.3 10x3/uL (4.8-10.8)
[2022-05-14 06:33] LABS: ALT (SGPT) 15 U/L (8-55); AST (SGOT) 20 U/L (5-34); Albumin 3.8 g/dL (3.4-4.8); Alkaline Phosphatase 75 U/L (40-110); Anion Gap 10 mmol/L (10-20); BUN (Urea Nitrogen) 27 mg/dL (9.8-20.1); Bilirubin, Total 0.4 mg/dL (0.2-1.2); Calc. Creatinine Clearance 0 mL/min (70-130); Carbon Dioxide 31 mmol/L (23-31); Chloride 92 mmol/L (98-107); Estimated GFR 30; Globulin 4.3 g/dL (2.4-3.5); Glucose 96 mg/dL (83-110); Potassium 2.7 mmol/L (3.5-5.1); Protein, Total 8.1 g/dL (5.8-8.1); Sodium 130 mmol/L (136-145)
[2022-05-14 07:21] LABS: Bacteria/HPF None Seen HPF (None Seen); Bilirubin Negative (Negative); Blood, Urine 2+ (Negative); Clarity Clear (Clear); Glucose, Urine (Dipstick) Normal (Negative); Ketone, Urine Negative (Negative); Leukocyte 25 Leu/uL (Negative); Nitrite Negative (Negative); Protein, Urine (Dipstick) Negative (Neg-Trace); Specific Gravity, Urine 1.011 (1.002-1.036); Squamous Epithelial 0-3 HPF (0-3); Urobilinogen Normal mg/dL (Less than 2); WBC/HPF 0-3 HPF (0-3); pH, Urine 6.5 (5.0-9.0)
[2022-05-14] MEDS ORDERED: Potassium Chloride 20 MEQ/100 ML PREMIX BAG ONE ×2 (07:24→09:38)
[2022-05-14] MEDS ORDERED: Ondansetron ODT 4 MG TAB PO PRN (09:33)
[2022-05-14] MEDS ORDERED: Acetaminophen 325 MG TAB PO PRN (09:33)
[2022-05-14] MEDS ORDERED: Electrolyte Replacement Protocol 1 EACH FS SCH (09:45)
[2022-05-14 10:22] LABS: Troponin I 0.013 ng/mL (< 0.028)
[2022-05-14 10:41] LABS: Magnesium 1.8 mg/dL (1.6-2.6)
[2022-05-14] MEDS ORDERED: Magnesium 2 GM/50 ML(in water) 2 GM in Premix Bag 1 BAG IVPB SCH (13:00)
[2022-05-14] MEDS ORDERED: Potassium Chloride 20 MEQ TAB PO SCH ×2 (13:00)
[2022-05-14 13:07] LABS: Troponin I Less than 0.010 ng/mL (< 0.028)
[2022-05-14 17:05] VITALS: BMI 41.2
[2022-05-14] MEDS: Sodium Chloride 0.9% 1,000 ML IV SCH (17:30)
[2022-05-14 19:23] LABS: Potassium 2.9 mmol/L (3.5-5.1)
[2022-05-14] MEDS: Potassium Chloride 20 MEQ TAB PO SCH (23:01)
[2022-05-15] MEDS: Potassium Chloride 20 MEQ TAB PO SCH (02:14)
[2022-05-15] MEDS: Sodium Chloride 0.9% 1,000 ML IV SCH (05:08)
[2022-05-15 05:18] LABS: #Basophils 0.1 thou/uL (0.0-0.2); #Eosinphils 0.2 thou/uL (0.0-0.7); #Lymphocytes 2.3 thou/uL (1.20-3.40); #Monocytes 0.8 thou/uL (0.11-0.59); #Neutrophils 5.1 thou/uL (1.40-6.50); %Basophils 0.6 % (0.0-1.0); %Eosinophils 1.9 % (0.0-10.0); %Lymphocytes 27.6 % (21.0-51.0); %Monocytes 9.5 % (0.0-10.0); %Neutrophils 60.3 % (42.0-75.0); Hemoglobin 12.1 g/dL (12.0-16.0); Mean Corpuscular HGB CONC 33.3 g/dL (32.0-36.0); Mean Corpuscular Hemoglobin 28.2 pg (27.0-31.0); Mean Corpuscular Volume 84.6 fl (78.0-98.0); Mean Platelet Volume 9.5 fL (7.4-10.4); Platelet Count 238 10x3/uL (130-400); RBC Distribution Width 14.1 % (11.5-14.5); Red Blood Cell (RBC) Count 4.28 mill/uL (4.20-5.40); White Blood Cell (WBC) Count 8.4 10x3/uL (4.8-10.8)
[2022-05-15 05:37] LABS: Anion Gap 11 mmol/L (10-20); BUN (Urea Nitrogen) 18 mg/dL (9.8-20.1); Calc. Creatinine Clearance 57 mL/min (70-130); Calcium 9.3 mg/dL (7.8-10.44); Carbon Dioxide 24 mmol/L (23-31); Chloride 101 mmol/L (98-107); Estimated GFR 51; Glucose 81 mg/dL (83-110); Magnesium 2.2 mg/dL (1.6-2.6); Potassium 4.2 mmol/L (3.5-5.1); Sodium 132 mmol/L (136-145)
[2022-05-15] MEDS: Carvedilol 6.25 MG TAB PO SCH ×2 (09:26→21:19)
[2022-05-15] MEDS: Cyanocobalamin (Vitamin B-12) 1,000 MCG TAB PO SCH (09:26)
[2022-05-15] MEDS: Nystatin Powder 15 GM BOT TOP SCH ×2 (09:45→21:19)
[2022-05-15] MEDS: cefTRIAXone\\ROCEPHIN 1 GM in Sodium Chloride 0.9% 100 ML IVPB SCH (09:45)
[2022-05-15] MEDS: Saccharomyces boulardii 250 MG CAP PO SCH (13:05)
[2022-05-15] MEDS ORDERED: Potassium Chloride 20 MEQ TAB PO SCH (17:00)
[2022-05-15] MEDS: Mometasone 200 MCG/Formoterol 5 MCG 120 PUFF INHALER INH SCH (19:38)
[2022-05-15] MEDS ORDERED: ALPRAZolam 0.5 MG TAB PO PRN (21:02)
[2022-05-15] MEDS ORDERED: ALPRAZolam 0.25 MG TAB PO PRN (21:04)
[2022-05-15] MEDS: Ondansetron PF 4 MG/2 ML Vial IVP PRN (21:19)
[2022-05-16] MEDS: traMADol HCl 50 MG TAB PO PRN (00:33)
[2022-05-16] MEDS: Ondansetron PF 4 MG/2 ML Vial IVP PRN (04:26)
[2022-05-16] MEDS: Levothyroxine Sodium 100 MCG TAB PO SCH (04:27)
[2022-05-16 05:02] LABS: #Basophils 0.1 thou/uL (0.0-0.2); #Eosinphils 0.2 thou/uL (0.0-0.7); #Lymphocytes 2.5 thou/uL (1.20-3.40); #Neutrophils 6.4 thou/uL (1.40-6.50); %Basophils 0.8 % (0.0-1.0); %Eosinophils 1.9 % (0.0-10.0); %Lymphocytes 24.4 % (21.0-51.0); %Monocytes 9.4 % (0.0-10.0); %Neutrophils 63.6 % (42.0-75.0); Mean Corpuscular HGB CONC 33.2 g/dL (32.0-36.0); Mean Corpuscular Hemoglobin 28.7 pg (27.0-31.0); Mean Corpuscular Volume 86.4 fl (78.0-98.0); Mean Platelet Volume 9.4 fL (7.4-10.4); Platelet Count 246 10x3/uL (130-400); RBC Distribution Width 14.4 % (11.5-14.5); Red Blood Cell (RBC) Count 4.52 mill/uL (4.20-5.40); White Blood Cell (WBC) Count 10.1 10x3/uL (4.8-10.8)
[2022-05-16 05:32] LABS: Anion Gap 10 mmol/L (10-20); BUN (Urea Nitrogen) 12 mg/dL (9.8-20.1); Calc. Creatinine Clearance 70 mL/min (70-130); Calcium 9.6 mg/dL (7.8-10.44); Carbon Dioxide 25 mmol/L (23-31); Chloride 103 mmol/L (98-107); Estimated GFR 65; Glucose 96 mg/dL (83-110); Magnesium 2.3 mg/dL (1.6-2.6); Potassium 4.2 mmol/L (3.5-5.1); Sodium 134 mmol/L (136-145)
[2022-05-16] MEDS: Mometasone 200 MCG/Formoterol 5 MCG 120 PUFF INHALER INH SCH ×2 (07:52→18:20)
[2022-05-16] MEDS: Cyanocobalamin (Vitamin B-12) 1,000 MCG TAB PO SCH (09:30)
[2022-05-16] MEDS: cefTRIAXone\\ROCEPHIN 1 GM in Sodium Chloride 0.9% 100 ML IVPB SCH (09:30)
[2022-05-16] MEDS: Carvedilol 6.25 MG TAB PO SCH ×2 (09:33→21:39)
[2022-05-16] MEDS: Nystatin Powder 15 GM BOT TOP SCH ×2 (09:38→21:40)
[2022-05-16] MEDS: Saccharomyces boulardii 250 MG CAP PO SCH (14:35)
[2022-05-17] MEDS: traMADol HCl 50 MG TAB PO PRN (02:47)
[2022-05-17 05:06] LABS: #Eosinphils 0.2 thou/uL (0.0-0.7); #Lymphocytes 2.1 thou/uL (1.20-3.40); #Monocytes 0.9 thou/uL (0.11-0.59); #Neutrophils 6.6 thou/uL (1.40-6.50); %Basophils 0.5 % (0.0-1.0); %Eosinophils 1.7 % (0.0-10.0); %Lymphocytes 21.7 % (21.0-51.0); %Neutrophils 67.2 % (42.0-75.0); Hemoglobin 12.7 g/dL (12.0-16.0); Mean Corpuscular HGB CONC 31.3 g/dL (32.0-36.0); Mean Corpuscular Hemoglobin 27.3 pg (27.0-31.0); Mean Corpuscular Volume 87.1 fl (78.0-98.0); Mean Platelet Volume 9.6 fL (7.4-10.4); Platelet Count 266 10x3/uL (130-400); RBC Distribution Width 14.3 % (11.5-14.5); Red Blood Cell (RBC) Count 4.65 mill/uL (4.20-5.40); White Blood Cell (WBC) Count 9.9 10x3/uL (4.8-10.8)
[2022-05-17 05:32] LABS: Anion Gap 9 mmol/L (10-20); BUN (Urea Nitrogen) 10 mg/dL (9.8-20.1); Calc. Creatinine Clearance 76 mL/min (70-130); Calcium 9.6 mg/dL (7.8-10.44); Carbon Dioxide 26 mmol/L (23-31); Chloride 103 mmol/L (98-107); Estimated GFR 72; Glucose 106 mg/dL (83-110); Potassium 4.4 mmol/L (3.5-5.1); Sodium 134 mmol/L (136-145)
[2022-05-17] MEDS: Levothyroxine Sodium 100 MCG TAB PO SCH (06:37)
[2022-05-17] MEDS: Mometasone 200 MCG/Formoterol 5 MCG 120 PUFF INHALER INH SCH (07:20)
[2022-05-17] MEDS ORDERED: Carvedilol 6.25 MG TAB PO SCH (09:00)
[2022-05-17] MEDS ORDERED: Amlodipine 5 MG TAB PO SCH (09:00)
[2022-05-17] MEDS: Nystatin Powder 15 GM BOT TOP SCH (09:33)
[2022-05-17] MEDS: Cyanocobalamin (Vitamin B-12) 1,000 MCG TAB PO SCH (09:33)
[2022-05-17] MEDS: cefTRIAXone\\ROCEPHIN 1 GM in Sodium Chloride 0.9% 100 ML IVPB SCH (09:33)
[2022-05-17 11:47] VITALS: BP 161/66; TEMP 98.1
== END 2022-05-17 11:55 | DRG 683 ==
LOC: ERS 05:21 → ERHOLD 09:37 → 2NO 17:46 → OBSVTOIN 05-16 13:39
PROVIDERS: ADMIT Family Medicine; ATTEND Internal Medicine
DX: N17.9 Acute kidney failure, unspecified (principal); E87.1 Hypo-osmolality and hyponatremia; N39.0 Urinary tract infection, site not specified; Z68.41 Body mass index [BMI] 40.0-44.9, adult; I50.32 Chronic diastolic (congestive) heart failure; I13.0 Hypertensive heart and chronic kidney disease with heart failure and stage 1 through stage 4 chronic kidney disease, or unspecified chronic kidney disease; E87.6 Hypokalemia; E03.9 Hypothyroidism, unspecified; F41.9 Anxiety disorder, unspecified; F32.A Depression, unspecified; E66.01 Morbid (severe) obesity due to excess calories; E78.00 Pure hypercholesterolemia, unspecified; Z87.891 Personal history of nicotine dependence; Z88.2 Allergy status to sulfonamides; Z88.8 Allergy status to other drugs, medicaments and biological substances; Z88.0 Allergy status to penicillin; Z79.890 Hormone replacement therapy; Z79.899 Other long term (current) drug therapy
CPT/HCPCS: 36415; 51701; 71045; 80048; 80053; 81003; 81015; 83735; 83880; 84443; 84484; 85025; 87086; 93005; 94664; 96365; 96366; 96375; 96376; 97139; G0378; J0696; J2405; J3475; J3480; J3490; J7050

== ENCOUNTER 2022-05-30 12:20 | Emergency (ER) | payer MEDICARE, MEDICAID ==
[2022-05-30 13:38] LABS: #Eosinphils 0.2 thou/uL (0.0-0.7); #Lymphocytes 1.1 thou/uL (1.20-3.40); #Monocytes 0.6 thou/uL (0.11-0.59); #Neutrophils 8.7 thou/uL (1.40-6.50); %Basophils 0.4 % (0.0-1.0); %Eosinophils 1.5 % (0.0-10.0); %Lymphocytes 10.6 % (21.0-51.0); %Monocytes 5.9 % (0.0-10.0); %Neutrophils 81.7 % (42.0-75.0); Hemoglobin 12.9 g/dL (12.0-16.0); Mean Corpuscular HGB CONC 32.9 g/dL (32.0-36.0); Mean Corpuscular Hemoglobin 28.1 pg (27.0-31.0); Mean Corpuscular Volume 85.6 fl (78.0-98.0); Platelet Count 251 10x3/uL (130-400); RBC Distribution Width 14.5 % (11.5-14.5); White Blood Cell (WBC) Count 10.7 10x3/uL (4.8-10.8)
[2022-05-30 14:04] LABS: ALT (SGPT) 21 U/L (8-55); AST (SGOT) 27 U/L (5-34); Albumin 3.7 g/dL (3.4-4.8); Alkaline Phosphatase 85 U/L (40-110); Anion Gap 17 mmol/L (10-20); BUN (Urea Nitrogen) 10 mg/dL (9.8-20.1); Bilirubin, Total 0.7 mg/dL (0.2-1.2); Calc. Creatinine Clearance 0 mL/min (70-130); Calcium 9.9 mg/dL (7.8-10.44); Carbon Dioxide 23 mmol/L (23-31); Chloride 96 mmol/L (98-107); Estimated GFR 52; Globulin 4.4 g/dL (2.4-3.5); Glucose 121 mg/dL (83-110); Potassium 3.3 mmol/L (3.5-5.1); Protein, Total 8.1 g/dL (5.8-8.1); Sodium 133 mmol/L (136-145)
[2022-05-30] MEDS ORDERED: Ipratropium/Albuterol 3 ML NEB ONE (14:27)
== END 2022-05-30 15:38 ==
LOC: ERS 12:20
DX: M79.662 Pain in left lower leg (principal); M79.661 Pain in right lower leg; I13.0 Hypertensive heart and chronic kidney disease with heart failure and stage 1 through stage 4 chronic kidney disease, or unspecified chronic kidney disease; I50.9 Heart failure, unspecified; N18.30 Chronic kidney disease, stage 3 unspecified; J44.9 Chronic obstructive pulmonary disease, unspecified; W18.11XA Fall from or off toilet without subsequent striking against object, initial encounter
CPT/HCPCS: 36415; 36416; 71045; 80053; 84484; 85025; 93005; 94640; J7620

== ENCOUNTER 2022-06-01 12:55 | Inpatient (IN) | payer MEDICARE, MEDICAID ==
[2022-06-01] MEDS ORDERED: Ipratropium/Albuterol 3 ML NEB ONE (13:22)
[2022-06-01 13:23] LABS: #Eosinphils 0.1 thou/uL (0.0-0.7); #Lymphocytes 1.7 thou/uL (1.20-3.40); #Monocytes 0.8 thou/uL (0.11-0.59); #Neutrophils 7.5 thou/uL (1.40-6.50); %Basophils 0.3 % (0.0-1.0); %Eosinophils 1.2 % (0.0-10.0); %Lymphocytes 16.9 % (21.0-51.0); %Monocytes 7.5 % (0.0-10.0); Hemoglobin 11.7 g/dL (12.0-16.0); Mean Corpuscular HGB CONC 31.6 g/dL (32.0-36.0); Mean Corpuscular Hemoglobin 27.6 pg (27.0-31.0); Mean Corpuscular Volume 87.3 fl (78.0-98.0); Mean Platelet Volume 9.7 fL (7.4-10.4); Platelet Count 265 10x3/uL (130-400); RBC Distribution Width 14.7 % (11.5-14.5); Red Blood Cell (RBC) Count 4.24 mill/uL (4.20-5.40); White Blood Cell (WBC) Count 10.2 10x3/uL (4.8-10.8)
[2022-06-01] MEDS ORDERED: Magnesium 2 GM/50 ML BAG (IN WATER) ONE (13:23)
[2022-06-01] MEDS ORDERED: Dexamethasone 10 MG/ML VIAL ONE (13:23)
[2022-06-01 13:45] LABS: ALT (SGPT) 16 U/L (8-55); AST (SGOT) 18 U/L (5-34); Albumin 3.5 g/dL (3.4-4.8); Alkaline Phosphatase 79 U/L (40-110); Anion Gap 16 mmol/L (10-20); BUN (Urea Nitrogen) 7 mg/dL (9.8-20.1); Bilirubin, Total 0.8 mg/dL (0.2-1.2); CK (CPK) 73 U/L (29-168); Calc. Creatinine Clearance 0 mL/min (70-130); Calcium 9.5 mg/dL (7.8-10.44); Carbon Dioxide 26 mmol/L (23-31); Chloride 96 mmol/L (98-107); Estimated GFR 67; Glucose 127 mg/dL (83-110); Lipase Less than 4 U/L (8-78); Protein, Total 7.5 g/dL (5.8-8.1); Sodium 135 mmol/L (136-145)
[2022-06-01 14:20] LABS: SARS-CoV-2 NAA Rapid Test Not Detected (NotDetected)
[2022-06-01 15:14] LABS: Actual Bicarbonate (HCO3a) 27.4 mEq/L (22-28); Analyzer IN Cardio ER; Base Excess (BEa) 1.8 mEq/L (-2.0 to +3.0); CO2 Tension 46.7 mmHg (35.0-45.0); Calcium, Ionized (arterial) 1.19 mmol/L (1.12-1.30); Carboxyhemoglobin (COHb) 0.6 gm% (0.0-3.0); Hemoglobin (Hb) 12.7 g/dL (12.0-16.0); Potassium - ABG Lab 3.17 mmol/L (3.70-5.30); pH, Arterial 7.39 (7.35-7.45)
[2022-06-01 15:15] LABS: O2 Tension (PaO2), arterial 44.9 mmHg (> 60.0)
[2022-06-01 15:18] LABS: ALV-art Gradient 196.185 mmHg (0-20); Puncture Site LRA
[2022-06-01 15:21] LABS: Bacteria/HPF None Seen HPF (None Seen); Bilirubin Negative (Negative); Blood, Urine 2+ (Negative); Clarity Clear (Clear); Glucose, Urine (Dipstick) Normal (Negative); Ketone, Urine Negative (Negative); Leukocyte Negative Leu/uL (Negative); Nitrite Negative (Negative); Protein, Urine (Dipstick) Negative (Neg-Trace); RBC/HPF 21-50 HPF (0-3); Specific Gravity, Urine 1.007 (1.002-1.036); Squamous Epithelial None Seen HPF (0-3); Urobilinogen Normal mg/dL (Less than 2); WBC/HPF 0-3 HPF (0-3)
[2022-06-01] MEDS ORDERED: Furosemide 40 MG/4 ML VIAL ONE (16:24)
[2022-06-01] MEDS ORDERED: Furosemide 40 MG/4 ML VIAL SLOW IVP SCH (17:00)
[2022-06-01] MEDS ORDERED: Ipratropium/Albuterol 3 ML NEB NEB PRN (17:10)
[2022-06-01] MEDS: Potassium Chloride 10 MEQ in Premix Bag 1 BAG IVPB SCH ×3 (17:39→21:08)
[2022-06-01 18:50] LABS: Troponin I Less than 0.010 ng/mL (< 0.028)
[2022-06-01] MEDS: Famotidine 20 MG TAB PO SCH (21:08)
[2022-06-01] MEDS: Bupropion 150 MG SR TAB PO SCH (21:40)
[2022-06-01] MEDS: Mometasone 200 MCG/Formoterol 5 MCG 120 PUFF INHALER INH SCH (21:57)
[2022-06-01] MEDS: Ipratropium/Albuterol 3 ML NEB NEB SCH (21:57)
[2022-06-01 22:02] VITALS: BMI 41.6
[2022-06-01 22:20] LABS: Troponin I 0.015 ng/mL (< 0.028)
[2022-06-01] MEDS ORDERED: Electrolyte Replacement Protocol FS SCH (22:30)
[2022-06-02] MEDS: Ipratropium/Albuterol 3 ML NEB NEB SCH ×2 (00:24→07:24)
[2022-06-02 02:16] LABS: Troponin I 0.012 ng/mL (< 0.028)
[2022-06-02 04:01] LABS: #Basophils 0.1 thou/uL (0.0-0.2); #Lymphocytes 0.7 thou/uL (1.20-3.40); #Monocytes 0.2 thou/uL (0.11-0.59); #Neutrophils 7.2 thou/uL (1.40-6.50); %Basophils 0.9 % (0.0-1.0); %Eosinophils 0.1 % (0.0-10.0); %Lymphocytes 8.4 % (21.0-51.0); %Monocytes 2.8 % (0.0-10.0); %Neutrophils 87.7 % (42.0-75.0); Hemoglobin 11.8 g/dL (12.0-16.0); Mean Corpuscular HGB CONC 31.2 g/dL (32.0-36.0); Mean Corpuscular Hemoglobin 26.8 pg (27.0-31.0); Mean Corpuscular Volume 85.9 fl (78.0-98.0); Mean Platelet Volume 10.6 fL (7.4-10.4); Platelet Count 264 10x3/uL (130-400); RBC Distribution Width 14.6 % (11.5-14.5); Red Blood Cell (RBC) Count 4.41 mill/uL (4.20-5.40); White Blood Cell (WBC) Count 8.1 10x3/uL (4.8-10.8)
[2022-06-02 04:43] LABS: ALT (SGPT) 18 U/L (8-55); AST (SGOT) 16 U/L (5-34); Albumin 3.5 g/dL (3.4-4.8); Alkaline Phosphatase 78 U/L (40-110); Anion Gap 15 mmol/L (10-20); BUN (Urea Nitrogen) 12 mg/dL (9.8-20.1); Bilirubin, Total 0.5 mg/dL (0.2-1.2); Calc. Creatinine Clearance 60 mL/min (70-130); Calcium 9.7 mg/dL (7.8-10.44); Carbon Dioxide 28 mmol/L (23-31); Chloride 93 mmol/L (98-107); Estimated GFR 55; Globulin 4.4 g/dL (2.4-3.5); Glucose 170 mg/dL (83-110); Protein, Total 7.9 g/dL (5.8-8.1); Sodium 133 mmol/L (136-145)
[2022-06-02] MEDS ORDERED: Potassium Chloride 20 MEQ TAB PO SCH ×2 (05:30→11:15)
[2022-06-02] MEDS: Levothyroxine Sodium 100 MCG TAB PO SCH (06:02)
[2022-06-02] MEDS: Mometasone 200 MCG/Formoterol 5 MCG 120 PUFF INHALER INH SCH ×2 (07:25→19:10)
[2022-06-02] MEDS: Famotidine 20 MG TAB PO SCH ×2 (09:10→20:54)
[2022-06-02] MEDS: methylPREDNISolone Sod Succ 40 MG VIAL IVP SCH (09:11)
[2022-06-02] MEDS: Bupropion 150 MG SR TAB PO SCH ×2 (09:11→20:54)
[2022-06-02 10:45] LABS: Potassium 3.4 mmol/L (3.5-5.1)
[2022-06-02] MEDS: Albuterol 200 PUFF (6.7GM INHALER) INH SCH ×2 (12:58→19:10)
[2022-06-02] MEDS: Ipratropium 200 Puff Oral Inhaler INH SCH ×2 (12:58→19:10)
[2022-06-02] MEDS ORDERED: Albuterol 200 PUFF (6.7GM INHALER) INH PRN (18:27)
[2022-06-02] MEDS ORDERED: Carvedilol 6.25 MG TAB PO SCH (18:30)
[2022-06-02] MEDS: Gabapentin 300 MG CAP PO SCH (20:54)
[2022-06-02] MEDS: Amlodipine 5 MG TAB PO SCH (20:54)
[2022-06-03] MEDS: Albuterol 200 PUFF (6.7GM INHALER) INH SCH ×4 (01:56→19:01)
[2022-06-03] MEDS: Ipratropium 200 Puff Oral Inhaler INH SCH ×4 (01:57→19:03)
[2022-06-03 04:48] LABS: Anion Gap 14 mmol/L (10-20); BUN (Urea Nitrogen) 20 mg/dL (9.8-20.1); Calc. Creatinine Clearance 55 mL/min (70-130); Calcium 9.9 mg/dL (7.8-10.44); Carbon Dioxide 28 mmol/L (23-31); Chloride 94 mmol/L (98-107); Estimated GFR 49; Glucose 131 mg/dL (83-110); Potassium 4.1 mmol/L (3.5-5.1); Sodium 132 mmol/L (136-145)
[2022-06-03] MEDS: Levothyroxine Sodium 100 MCG TAB PO SCH (05:38)
[2022-06-03] MEDS: Mometasone 200 MCG/Formoterol 5 MCG 120 PUFF INHALER INH SCH ×2 (07:28→19:04)
[2022-06-03] MEDS: DULoxetine 60 MG CAP PO SCH (08:58)
[2022-06-03] MEDS: Furosemide 40 MG TAB PO SCH (08:58)
[2022-06-03] MEDS: Gabapentin 300 MG CAP PO SCH ×2 (08:58→20:34)
[2022-06-03] MEDS: methylPREDNISolone Sod Succ 40 MG VIAL IVP SCH (08:58)
[2022-06-03] MEDS: Cyanocobalamin (Vitamin B-12) 1,000 MCG TAB PO SCH (08:58)
[2022-06-03] MEDS: Amlodipine 5 MG TAB PO SCH ×2 (08:58→20:35)
[2022-06-03] MEDS: traMADol HCl 50 MG TAB PO SCH (08:58)
[2022-06-03] MEDS: Bupropion 150 MG SR TAB PO SCH ×2 (08:59→20:34)
[2022-06-03] MEDS: Carvedilol 6.25 MG TAB PO SCH ×2 (08:59→17:37)
[2022-06-03] MEDS ORDERED: Famotidine 20 MG TAB PO SCH (21:00)
[2022-06-03] MEDS: Senokot S 8.6-50 MG TAB PO PRN (22:06)
[2022-06-04] MEDS: Albuterol 200 PUFF (6.7GM INHALER) INH SCH ×3 (00:18→13:26)
[2022-06-04] MEDS: Ipratropium 200 Puff Oral Inhaler INH SCH ×3 (00:19→13:26)
[2022-06-04] MEDS: Levothyroxine Sodium 100 MCG TAB PO SCH (05:03)
[2022-06-04] MEDS: Mometasone 200 MCG/Formoterol 5 MCG 120 PUFF INHALER INH SCH ×2 (07:49→18:25)
[2022-06-04] MEDS: DULoxetine 60 MG CAP PO SCH (09:57)
[2022-06-04] MEDS: Amlodipine 5 MG TAB PO SCH (09:57)
[2022-06-04] MEDS: Furosemide 40 MG TAB PO SCH (09:57)
[2022-06-04] MEDS: methylPREDNISolone Sod Succ 40 MG VIAL IVP SCH ×3 (09:57→20:34)
[2022-06-04] MEDS: Carvedilol 6.25 MG TAB PO SCH ×2 (09:57→17:48)
[2022-06-04] MEDS: Cyanocobalamin (Vitamin B-12) 1,000 MCG TAB PO SCH (09:58)
[2022-06-04] MEDS: traMADol HCl 50 MG TAB PO SCH (09:58)
[2022-06-04] MEDS: Bupropion 150 MG SR TAB PO SCH (09:58)
[2022-06-04] MEDS: Gabapentin 300 MG CAP PO SCH (09:58)
[2022-06-04 13:59] LABS: Actual Bicarbonate (HCO3a) 32.3 mEq/L (22-28); Base Excess (BEa) 7.2 mEq/L (-2.0 to +3.0); CO2 Tension 47.8 mmHg (35.0-45.0); Calcium, Ionized (arterial) 1.22 mmol/L (1.12-1.30); Carboxyhemoglobin (COHb) 0.8 gm% (0.0-3.0); Hematocrit-ABG 39 % (36.0-47.0); Hemoglobin (Hb) 13.3 g/dL (12.0-16.0); O2 Tension (PaO2), arterial 62.7 mmHg (> 60.0); Potassium - ABG Lab 3.67 mmol/L (3.70-5.30); pH, Arterial 7.448 (7.35-7.45)
[2022-06-04] MEDS ORDERED: Ipratropium/Albuterol 3 ML NEB NEB SCH ×2 (14:00→19:00)
[2022-06-04] MEDS ORDERED: Furosemide 40 MG/4 ML VIAL SLOW IVP SCH (14:00)
[2022-06-04 14:02] LABS: Puncture Site Right Radial
[2022-06-04] MEDS ORDERED: Budesonide 0.5 MG/2 ML NEB NEB SCH (14:30)
[2022-06-04 14:52] LABS: #Lymphocytes 0.8 thou/uL (1.20-3.40); #Monocytes 0.8 thou/uL (0.11-0.59); #Neutrophils 14.4 thou/uL (1.40-6.50); %Lymphocytes 4.9 % (21.0-51.0); %Monocytes 5.2 % (0.0-10.0); %Neutrophils 89.8 % (42.0-75.0); Hemoglobin 13.4 g/dL (12.0-16.0); Mean Corpuscular HGB CONC 35.8 g/dL (32.0-36.0); Mean Corpuscular Hemoglobin 30.8 pg (27.0-31.0); Mean Corpuscular Volume 86.2 fl (78.0-98.0); Mean Platelet Volume 10.1 fL (7.4-10.4); Platelet Count 305 10x3/uL (130-400); RBC Distribution Width 14.4 % (11.5-14.5); Red Blood Cell (RBC) Count 4.34 mill/uL (4.20-5.40)
[2022-06-04 15:07] LABS: ALT (SGPT) 24 U/L (8-55); AST (SGOT) 27 U/L (5-34); Albumin 3.4 g/dL (3.4-4.8); Alkaline Phosphatase 81 U/L (40-110); Anion Gap 12 mmol/L (10-20); BUN (Urea Nitrogen) 23 mg/dL (9.8-20.1); Bilirubin, Total 0.7 mg/dL (0.2-1.2); Calc. Creatinine Clearance 59 mL/min (70-130); Calcium 9.9 mg/dL (7.8-10.44); Carbon Dioxide 31 mmol/L (23-31); Chloride 94 mmol/L (98-107); Estimated GFR 53; Globulin 4.2 g/dL (2.4-3.5); Glucose 113 mg/dL (83-110); Potassium 3.5 mmol/L (3.5-5.1); Protein, Total 7.6 g/dL (5.8-8.1); Sodium 133 mmol/L (136-145)
[2022-06-04] MEDS ORDERED: Magnesium Sulfate 3 GM in Sodium Chloride 0.9% 100 ML IVPB SCH (15:30)
[2022-06-04] MEDS ORDERED: diphenhydrAMINE 50 MG/ML VIAL IVP SCH (18:15)
[2022-06-04] MEDS: Ipratropium Bromide 2.5 ml Neb NEB SCH (18:21)
[2022-06-04] MEDS: Budesonide 0.5 MG/2 ML NEB NEB SCH (18:21)
[2022-06-04] MEDS: Cefepime 1 GM in Sodium Chloride 0.9% 100 ML IVPB SCH (20:35)
[2022-06-04] MEDS: Lorazepam 2 MG/ML VIAL SLOW IVP PRN (20:37)
[2022-06-04] MEDS ORDERED: Potassium Chloride 40 MEQ in Premix Bag 1 BAG IVPB PRN (20:56)
[2022-06-04] MEDS ORDERED: Potassium Chloride 20 MEQ TAB PO SCH (21:00)
[2022-06-05] MEDS: Ipratropium Bromide 2.5 ml Neb NEB SCH ×5 (00:08→23:26)
[2022-06-05] MEDS: methylPREDNISolone Sod Succ 40 MG VIAL IVP SCH ×4 (01:51→21:57)
[2022-06-05] MEDS: Lorazepam 2 MG/ML VIAL SLOW IVP PRN (02:22)
[2022-06-05 03:53] LABS: #Lymphocytes 0.8 thou/uL (1.20-3.40); #Monocytes 0.4 thou/uL (0.11-0.59); #Neutrophils 11.1 thou/uL (1.40-6.50); %Lymphocytes 6.3 % (21.0-51.0); %Monocytes 3.6 % (0.0-10.0); %Neutrophils 90.2 % (42.0-75.0); Hemoglobin 12.7 g/dL (12.0-16.0); Mean Corpuscular HGB CONC 35.2 g/dL (32.0-36.0); Mean Corpuscular Hemoglobin 30.4 pg (27.0-31.0); Mean Corpuscular Volume 86.3 fl (78.0-98.0); Mean Platelet Volume 10.1 fL (7.4-10.4); Platelet Count 299 10x3/uL (130-400); RBC Distribution Width 14.3 % (11.5-14.5); Red Blood Cell (RBC) Count 4.19 mill/uL (4.20-5.40); White Blood Cell (WBC) Count 12.3 10x3/uL (4.8-10.8)
[2022-06-05] MEDS: hydrALAZINE 20 MG/ML VIAL SLOW IVP PRN (04:08)
[2022-06-05 04:16] LABS: ALT (SGPT) 22 U/L (8-55); AST (SGOT) 21 U/L (5-34); Albumin 3.2 g/dL (3.4-4.8); Alkaline Phosphatase 78 U/L (40-110); Anion Gap 13 mmol/L (10-20); BUN (Urea Nitrogen) 21 mg/dL (9.8-20.1); Bilirubin, Total 0.7 mg/dL (0.2-1.2); Calc. Creatinine Clearance 61 mL/min (70-130); Calcium 9.6 mg/dL (7.8-10.44); Carbon Dioxide 32 mmol/L (23-31); Chloride 93 mmol/L (98-107); Estimated GFR 56; Glucose 160 mg/dL (83-110); Potassium 3.2 mmol/L (3.5-5.1); Protein, Total 7.2 g/dL (5.8-8.1); Sodium 135 mmol/L (136-145)
[2022-06-05] MEDS: Potassium Chloride 20 MEQ in Premix Bag 1 BAG IVPB SCH ×2 (05:32→07:28)
[2022-06-05] MEDS: Furosemide 20 MG/2 ML VIAL SLOW IVP SCH ×2 (05:36→13:31)
[2022-06-05] MEDS: Levothyroxine 100 MCG SDV IVP SCH (06:04)
[2022-06-05] MEDS: Mometasone 200 MCG/Formoterol 5 MCG 120 PUFF INHALER INH SCH ×2 (07:45→18:25)
[2022-06-05] MEDS: Budesonide 0.5 MG/2 ML NEB NEB SCH ×2 (07:45→18:25)
[2022-06-05] MEDS ORDERED: Potassium Chloride 20 MEQ in Premix Bag 1 BAG IVPB SCH (08:00)
[2022-06-05] MEDS: Cefepime 1 GM in Sodium Chloride 0.9% 100 ML IVPB SCH ×2 (09:17→09:22)
[2022-06-05] MEDS: Cyanocobalamin (Vitamin B-12) 1,000 MCG TAB PO SCH (09:21)
[2022-06-05] MEDS: Furosemide 40 MG TAB PO SCH (09:22)
[2022-06-05] MEDS ORDERED: Cefepime 2 GM in Sodium Chloride 0.9% 100 ML IVPB SCH ×2 (09:30→21:00)
[2022-06-05] MEDS: Azithromycin 500 MG in Sodium Chloride 0.9% 250 ML 250 ML IVPB SCH (12:58)
[2022-06-05 13:14] LABS: Legionella Urinary Ag Negative (Negative); Strep pneumo Urine Ag NEGATIVE (NEGATIVE)
[2022-06-06] MEDS: Lorazepam 2 MG/ML VIAL SLOW IVP PRN (00:41)
[2022-06-06] MEDS: methylPREDNISolone Sod Succ 40 MG VIAL IVP SCH ×4 (02:04→21:47)
[2022-06-06] MEDS: Labetalol HCl 100 MG/20 ML VIAL SLOW IVP PRN (02:14)
[2022-06-06 04:33] LABS: #Basophils 0.1 thou/uL (0.0-0.2); #Lymphocytes 0.9 thou/uL (1.20-3.40); #Monocytes 0.5 thou/uL (0.11-0.59); #Neutrophils 10.3 thou/uL (1.40-6.50); %Basophils 0.5 % (0.0-1.0); %Eosinophils 0.2 % (0.0-10.0); %Lymphocytes 7.3 % (21.0-51.0); %Monocytes 4.2 % (0.0-10.0); %Neutrophils 87.9 % (42.0-75.0); Hemoglobin 12.7 g/dL (12.0-16.0); Mean Corpuscular HGB CONC 34.1 g/dL (32.0-36.0); Mean Corpuscular Hemoglobin 29.2 pg (27.0-31.0); Mean Corpuscular Volume 85.6 fl (78.0-98.0); Mean Platelet Volume 10.2 fL (7.4-10.4); Platelet Count 307 10x3/uL (130-400); RBC Distribution Width 14.7 % (11.5-14.5); Red Blood Cell (RBC) Count 4.36 mill/uL (4.20-5.40); White Blood Cell (WBC) Count 11.7 10x3/uL (4.8-10.8)
[2022-06-06 04:55] LABS: Anion Gap 15 mmol/L (10-20); BUN (Urea Nitrogen) 23 mg/dL (9.8-20.1); Calc. Creatinine Clearance 70 mL/min (70-130); Calcium 9.9 mg/dL (7.8-10.44); Carbon Dioxide 32 mmol/L (23-31); Chloride 97 mmol/L (98-107); Estimated GFR 67; Glucose 166 mg/dL (83-110); Potassium 3.2 mmol/L (3.5-5.1); Sodium 141 mmol/L (136-145)
[2022-06-06] MEDS: Levothyroxine 100 MCG SDV IVP SCH (05:43)
[2022-06-06] MEDS: Furosemide 20 MG/2 ML VIAL SLOW IVP SCH ×2 (05:43→16:25)
[2022-06-06] MEDS: Clindamycin/D5W 600 MG in Premix Bag 1 BAG IVPB SCH ×3 (05:44→22:45)
[2022-06-06] MEDS: Budesonide 0.5 MG/2 ML NEB NEB SCH ×2 (07:02→18:48)
[2022-06-06] MEDS: Mometasone 200 MCG/Formoterol 5 MCG 120 PUFF INHALER INH SCH ×2 (07:03→18:51)
[2022-06-06] MEDS: Ipratropium Bromide 2.5 ml Neb NEB SCH ×2 (07:03→13:47)
[2022-06-06] MEDS ORDERED: Potassium Chloride 20 MEQ TAB PO SCH (08:00)
[2022-06-06] MEDS: cefTRIAXone\\ROCEPHIN 1 GM in Sodium Chloride 0.9% 100 ML IVPB SCH ×2 (08:43→21:46)
[2022-06-06] MEDS: Furosemide 40 MG TAB PO SCH ×2 (08:46→09:44)
[2022-06-06] MEDS: Cyanocobalamin (Vitamin B-12) 1,000 MCG TAB PO SCH ×2 (08:47→09:49)
[2022-06-06] MEDS ORDERED: Potassium Bicarbonate/Cit Ac 20 MEQ TAB PO SCH (10:00)
[2022-06-06] MEDS ORDERED: Potassium Bicarbonate/Cit Ac 20 MEQ TAB PER TUBE SCH (10:00)
[2022-06-06] MEDS ORDERED: Ipratropium/Albuterol 3 ML NEB NEB SCH (13:15)
[2022-06-06] MEDS: Azithromycin 500 MG in Sodium Chloride 0.9% 250 ML 250 ML IVPB SCH (16:24)
[2022-06-06] MEDS: Ipratropium/Albuterol 3 ML NEB NEB SCH ×2 (18:48→23:20)
[2022-06-07] MEDS: Labetalol HCl 100 MG/20 ML VIAL SLOW IVP PRN (01:17)
[2022-06-07] MEDS: Clindamycin/D5W 600 MG in Premix Bag 1 BAG IVPB SCH ×3 (05:37→21:06)
[2022-06-07] MEDS: Furosemide 20 MG/2 ML VIAL SLOW IVP SCH ×2 (05:38→13:43)
[2022-06-07] MEDS: methylPREDNISolone Sod Succ 40 MG VIAL IVP SCH ×3 (05:38→21:07)
[2022-06-07] MEDS: Budesonide 0.5 MG/2 ML NEB NEB SCH ×2 (06:50→18:27)
[2022-06-07] MEDS: Ipratropium/Albuterol 3 ML NEB NEB SCH ×3 (06:50→18:27)
[2022-06-07] MEDS: Mometasone 200 MCG/Formoterol 5 MCG 120 PUFF INHALER INH SCH ×2 (06:50→18:27)
[2022-06-07] MEDS: Levothyroxine 100 MCG SDV IVP SCH (07:00)
[2022-06-07] MEDS: cefTRIAXone\\ROCEPHIN 1 GM in Sodium Chloride 0.9% 100 ML IVPB SCH ×2 (09:27→19:58)
[2022-06-07] MEDS: Azithromycin 500 MG in Sodium Chloride 0.9% 250 ML 250 ML IVPB SCH (13:42)
[2022-06-07] MEDS: traMADol HCl 50 MG TAB PO PRN (18:16)
[2022-06-07] MEDS ORDERED: Metoprolol Tartrate 5 MG/5 ML VIAL IVP SCH (19:45)
[2022-06-07] MEDS: Diltiazem 125 MG in Sodium Chloride 0.9% 100 ML IVPB SCH (21:39)
[2022-06-08] MEDS: Ipratropium/Albuterol 3 ML NEB NEB SCH ×5 (00:09→23:37)
[2022-06-08] MEDS: Furosemide 20 MG/2 ML VIAL SLOW IVP SCH ×2 (05:55→14:21)
[2022-06-08] MEDS: methylPREDNISolone Sod Succ 40 MG VIAL IVP SCH ×3 (05:55→21:51)
[2022-06-08] MEDS: Clindamycin/D5W 600 MG in Premix Bag 1 BAG IVPB SCH ×3 (05:55→21:52)
[2022-06-08] MEDS: Levothyroxine 100 MCG SDV IVP SCH (05:56)
[2022-06-08] MEDS: Mometasone 200 MCG/Formoterol 5 MCG 120 PUFF INHALER INH SCH ×2 (07:02→19:48)
[2022-06-08] MEDS: Budesonide 0.5 MG/2 ML NEB NEB SCH ×2 (07:06→19:45)
[2022-06-08] MEDS: Cyanocobalamin (Vitamin B-12) 1,000 MCG TAB PO SCH (08:34)
[2022-06-08] MEDS: cefTRIAXone\\ROCEPHIN 1 GM in Sodium Chloride 0.9% 100 ML IVPB SCH ×2 (08:35→20:48)
[2022-06-08] MEDS ORDERED: Potassium Chloride 20 MEQ TAB PO SCH (09:00)
[2022-06-08] MEDS: Azithromycin 500 MG in Sodium Chloride 0.9% 250 ML 250 ML IVPB SCH (12:38)
[2022-06-08 13:59] LABS: Anion Gap 12 mmol/L (10-20); BUN (Urea Nitrogen) 26 mg/dL (9.8-20.1); Calc. Creatinine Clearance 59 mL/min (70-130); Calcium 9.3 mg/dL (7.8-10.44); Carbon Dioxide 33 mmol/L (23-31); Chloride 91 mmol/L (98-107); Estimated GFR 59; Glucose 202 mg/dL (83-110); Potassium 3.9 mmol/L (3.5-5.1); Sodium 132 mmol/L (136-145)
[2022-06-08] MEDS: traMADol HCl 50 MG TAB PO PRN (20:51)
[2022-06-09 04:13] LABS: #Monocytes 0.8 thou/uL (0.11-0.59); %Basophils 0.2 % (0.0-1.0); %Lymphocytes 6.9 % (21.0-51.0); %Monocytes 5.6 % (0.0-10.0); %Neutrophils 87.3 % (42.0-75.0); Hemoglobin 14.5 g/dL (12.0-16.0); Mean Corpuscular HGB CONC 32.4 g/dL (32.0-36.0); Mean Corpuscular Hemoglobin 27.6 pg (27.0-31.0); Mean Corpuscular Volume 85.3 fl (78.0-98.0); Mean Platelet Volume 10.3 fL (7.4-10.4); Platelet Count 327 10x3/uL (130-400); RBC Distribution Width 14.9 % (11.5-14.5); Red Blood Cell (RBC) Count 5.26 mill/uL (4.20-5.40); White Blood Cell (WBC) Count 14.9 10x3/uL (4.8-10.8)
[2022-06-09 04:35] LABS: Anion Gap 13 mmol/L (10-20); BUN (Urea Nitrogen) 26 mg/dL (9.8-20.1); Calc. Creatinine Clearance 57 mL/min (70-130); Calcium 9.3 mg/dL (7.8-10.44); Carbon Dioxide 32 mmol/L (23-31); Chloride 91 mmol/L (98-107); Estimated GFR 57; Glucose 174 mg/dL (83-110); Potassium 4.2 mmol/L (3.5-5.1); Sodium 132 mmol/L (136-145)
[2022-06-09] MEDS: Clindamycin/D5W 600 MG in Premix Bag 1 BAG IVPB SCH ×2 (05:14→15:28)
[2022-06-09] MEDS: Levothyroxine 100 MCG SDV IVP SCH (05:16)
[2022-06-09] MEDS: Furosemide 20 MG/2 ML VIAL SLOW IVP SCH ×2 (05:17→15:28)
[2022-06-09] MEDS: Ipratropium/Albuterol 3 ML NEB NEB SCH ×4 (07:29→23:04)
[2022-06-09] MEDS: Budesonide 0.5 MG/2 ML NEB NEB SCH ×2 (07:31→18:23)
[2022-06-09] MEDS: Mometasone 200 MCG/Formoterol 5 MCG 120 PUFF INHALER INH SCH (07:33)
[2022-06-09] MEDS: cefTRIAXone\\ROCEPHIN 1 GM in Sodium Chloride 0.9% 100 ML IVPB SCH ×2 (09:18→20:39)
[2022-06-09] MEDS: Cyanocobalamin (Vitamin B-12) 1,000 MCG TAB PO SCH (09:19)
[2022-06-09] MEDS: methylPREDNISolone Sod Succ 40 MG VIAL IVP SCH ×2 (09:19→21:54)
[2022-06-09] MEDS: Nystatin Powder 15 GM BOT TOP SCH ×2 (09:21→21:55)
[2022-06-09] MEDS: Azithromycin 500 MG in Sodium Chloride 0.9% 250 ML 250 ML IVPB SCH (12:19)
[2022-06-09] MEDS: Diltiazem 125 MG in Sodium Chloride 0.9% 100 ML IVPB SCH (17:29)
[2022-06-09] MEDS: Linezolid 600 MG in Premix Bag 1 BAG IVPB SCH (20:35)
[2022-06-09] MEDS: traMADol HCl 50 MG TAB PO PRN (20:36)
[2022-06-09] MEDS: hydrALAZINE 20 MG/ML VIAL SLOW IVP PRN (21:54)
[2022-06-10] MEDS: hydrALAZINE 20 MG/ML VIAL SLOW IVP PRN (02:11)
[2022-06-10 03:19] LABS: Hemoglobin 16.3 g/dL (12.0-16.0); Mean Corpuscular HGB CONC 34.1 g/dL (32.0-36.0); Mean Corpuscular Hemoglobin 28.9 pg (27.0-31.0); Mean Corpuscular Volume 84.9 fl (78.0-98.0); Mean Platelet Volume 10.2 fL (7.4-10.4); Platelet Count 343 10x3/uL (130-400); RBC Distribution Width 15.1 % (11.5-14.5); Red Blood Cell (RBC) Count 5.62 mill/uL (4.20-5.40)
[2022-06-10 03:37] LABS: Anion Gap 14 mmol/L (10-20); BUN (Urea Nitrogen) 28 mg/dL (9.8-20.1); Calc. Creatinine Clearance 52 mL/min (70-130); Calcium 9.7 mg/dL (7.8-10.44); Carbon Dioxide 28 mmol/L (23-31); Chloride 90 mmol/L (98-107); Estimated GFR 50; Glucose 216 mg/dL (83-110); Magnesium 1.8 mg/dL (1.6-2.6); Potassium 4.2 mmol/L (3.5-5.1); Sodium 128 mmol/L (136-145)
[2022-06-10] MEDS: Labetalol HCl 100 MG/20 ML VIAL SLOW IVP PRN (04:17)
[2022-06-10 04:54] LABS: Band 1 % (5-11); Lymphocytes 5 % (21-51); MDiff Complete? YES; Monocytes 6 % (0-10); Neutrophil 88 % (42-75)
[2022-06-10] MEDS ORDERED: Magnesium 2 GM/50 ML(in water) 2 GM in Premix Bag 1 BAG IVPB SCH (05:45)
[2022-06-10] MEDS: Furosemide 20 MG/2 ML VIAL SLOW IVP SCH ×2 (06:02→13:11)
[2022-06-10] MEDS: Levothyroxine 100 MCG SDV IVP SCH (06:18)
[2022-06-10] MEDS: Budesonide 0.5 MG/2 ML NEB NEB SCH ×2 (06:30→18:28)
[2022-06-10] MEDS: Ipratropium/Albuterol 3 ML NEB NEB SCH ×3 (06:33→18:27)
[2022-06-10] MEDS: Cyanocobalamin (Vitamin B-12) 1,000 MCG TAB PO SCH (09:30)
[2022-06-10] MEDS: cefTRIAXone\\ROCEPHIN 1 GM in Sodium Chloride 0.9% 100 ML IVPB SCH ×2 (09:30→20:24)
[2022-06-10] MEDS: methylPREDNISolone Sod Succ 40 MG VIAL IVP SCH (09:31)
[2022-06-10] MEDS: Linezolid 600 MG in Premix Bag 1 BAG IVPB SCH ×2 (09:31→21:16)
[2022-06-10] MEDS: Nystatin Powder 15 GM BOT TOP SCH ×2 (09:32→20:34)
[2022-06-10] MEDS: Lorazepam 2 MG/ML VIAL SLOW IVP PRN (09:33)
[2022-06-10] MEDS: traMADol HCl 50 MG TAB PO PRN (14:16)
[2022-06-10 14:49] LABS: Anion Gap 15 mmol/L (10-20); BUN (Urea Nitrogen) 27 mg/dL (9.8-20.1); Calc. Creatinine Clearance 57 mL/min (70-130); Calcium 9.3 mg/dL (7.8-10.44); Carbon Dioxide 28 mmol/L (23-31); Chloride 89 mmol/L (98-107); Estimated GFR 54; Glucose 237 mg/dL (83-110); Potassium 3.7 mmol/L (3.5-5.1); Sodium 128 mmol/L (136-145); Uric Acid 5.7 mg/dL (2.6-6.0)
[2022-06-10] MEDS ORDERED: Metoprolol Tartrate 25 MG TAB PO SCH ×2 (17:45→21:00)
[2022-06-10] MEDS: Senokot S 8.6-50 MG TAB PO PRN (20:31)
[2022-06-11] MEDS: Ipratropium/Albuterol 3 ML NEB NEB SCH ×4 (00:04→18:09)
[2022-06-11] MEDS: Lorazepam 2 MG/ML VIAL SLOW IVP PRN ×2 (00:23→14:48)
[2022-06-11] MEDS: Furosemide 20 MG/2 ML VIAL SLOW IVP SCH ×2 (05:44→14:48)
[2022-06-11] MEDS: Levothyroxine Sodium 100 MCG TAB PO SCH (05:44)
[2022-06-11] MEDS: Budesonide 0.5 MG/2 ML NEB NEB SCH ×2 (06:29→18:12)
[2022-06-11 07:38] LABS: Hemoglobin 14.6 g/dL (12.0-16.0); Mean Corpuscular HGB CONC 32.5 g/dL (32.0-36.0); Mean Corpuscular Hemoglobin 27.8 pg (27.0-31.0); Mean Corpuscular Volume 85.7 fl (78.0-98.0); Platelet Count 306 10x3/uL (130-400); Red Blood Cell (RBC) Count 5.26 mill/uL (4.20-5.40); White Blood Cell (WBC) Count 19.7 10x3/uL (4.8-10.8)
[2022-06-11 07:52] LABS: Anion Gap 13 mmol/L (10-20); BUN (Urea Nitrogen) 26 mg/dL (9.8-20.1); Calc. Creatinine Clearance 59 mL/min (70-130); Calcium 9.2 mg/dL (7.8-10.44); Carbon Dioxide 30 mmol/L (23-31); Chloride 91 mmol/L (98-107); Estimated GFR 57; Glucose 110 mg/dL (83-110); Magnesium 2.2 mg/dL (1.6-2.6); Potassium 3.5 mmol/L (3.5-5.1); Sodium 130 mmol/L (136-145)
[2022-06-11] MEDS ORDERED: Potassium Chloride 20 MEQ TAB PO SCH (09:30)
[2022-06-11 09:49] LABS: Hypersemented Neutrophil MODERATE; Lymphocytes 14 % (21-51); MDiff Complete? YES; Monocytes 7 % (0-10); Neutrophil 79 % (42-75); Platelet Morphology Comment Appears Adequate; Polychromasia SLIGHT = 2-3 cells (100X) (0-2/hpf)
[2022-06-11] MEDS: traMADol HCl 50 MG TAB PO PRN (10:24)
[2022-06-11] MEDS: Linezolid 600 MG in Premix Bag 1 BAG IVPB SCH ×2 (10:25→20:33)
[2022-06-11] MEDS: cefTRIAXone\\ROCEPHIN 1 GM in Sodium Chloride 0.9% 100 ML IVPB SCH ×2 (10:25→20:32)
[2022-06-11] MEDS: Cyanocobalamin (Vitamin B-12) 1,000 MCG TAB PO SCH (10:26)
[2022-06-11] MEDS: Metoprolol Tartrate 25 MG TAB PO SCH ×2 (10:26→20:33)
[2022-06-11] MEDS: methylPREDNISolone Sod Succ 40 MG VIAL IVP SCH (10:26)
[2022-06-11] MEDS: Nystatin Powder 15 GM BOT TOP SCH ×2 (10:27→20:57)
[2022-06-11] MEDS: Ondansetron PF 4 MG/2 ML Vial IVP PRN (14:48)
[2022-06-11] MEDS: Melatonin 3 MG TAB PO PRN (20:33)
[2022-06-12] MEDS ORDERED: Ketorolac Tromethamine 30 MG/ML VIAL IVP SCH (01:30)
[2022-06-12] MEDS: Ipratropium/Albuterol 3 ML NEB NEB SCH ×4 (01:40→18:33)
[2022-06-12] MEDS: Lorazepam 2 MG/ML VIAL SLOW IVP PRN (01:46)
[2022-06-12] MEDS: Levothyroxine Sodium 100 MCG TAB PO SCH (06:05)
[2022-06-12] MEDS: Furosemide 20 MG/2 ML VIAL SLOW IVP SCH (06:05)
[2022-06-12 06:18] LABS: Anion Gap 12 mmol/L (10-20); BUN (Urea Nitrogen) 31 mg/dL (9.8-20.1); Calc. Creatinine Clearance 60 mL/min (70-130); Calcium 8.5 mg/dL (7.8-10.44); Carbon Dioxide 29 mmol/L (23-31); Chloride 91 mmol/L (98-107); Estimated GFR 59; Glucose 127 mg/dL (83-110); Potassium 3.8 mmol/L (3.5-5.1); Sodium 128 mmol/L (136-145)
[2022-06-12 06:21] LABS: Anisocytosis SLIGHT = 6-15 cells (100X) (0-5/hpf); Eosinophils 1 % (0-10); Hemoglobin 13.8 g/dL (12.0-16.0); Lymphocytes 16 % (21-51); MDiff Complete? YES; Mean Corpuscular HGB CONC 32.4 g/dL (32.0-36.0); Mean Corpuscular Hemoglobin 27.9 pg (27.0-31.0); Mean Corpuscular Volume 86.2 fl (78.0-98.0); Mean Platelet Volume 9.8 fL (7.4-10.4); Monocytes 6 % (0-10); Neutrophil 77 % (42-75); Platelet Count 295 10x3/uL (130-400); Platelet Morphology Comment Appears Adequate; Red Blood Cell (RBC) Count 4.93 mill/uL (4.20-5.40); White Blood Cell (WBC) Count 19.4 10x3/uL (4.8-10.8)
[2022-06-12] MEDS: Budesonide 0.5 MG/2 ML NEB NEB SCH ×2 (07:18→18:36)
[2022-06-12] MEDS ORDERED: Magnesium 2 GM/50 ML(in water) 2 GM in Premix Bag 1 BAG IVPB SCH (08:00)
[2022-06-12] MEDS ORDERED: traMADol HCl 50 MG TAB PO PRN (08:03)
[2022-06-12] MEDS ORDERED: Acetaminophen 325 MG TAB PO PRN (08:23)
[2022-06-12] MEDS: Linezolid 600 MG in Premix Bag 1 BAG IVPB SCH ×2 (10:35→22:51)
[2022-06-12] MEDS: ALPRAZolam 0.25 MG TAB PO PRN ×2 (10:35→22:51)
[2022-06-12] MEDS: Metoprolol Tartrate 25 MG TAB PO SCH ×2 (10:36→22:36)
[2022-06-12] MEDS: Ondansetron PF 4 MG/2 ML Vial IVP PRN (10:36)
[2022-06-12] MEDS: Cyanocobalamin (Vitamin B-12) 1,000 MCG TAB PO SCH (10:36)
[2022-06-12] MEDS: Nystatin Powder 15 GM BOT TOP SCH ×2 (10:37→22:36)
[2022-06-12] MEDS: predniSONE 20 MG TAB PO SCH (10:37)
[2022-06-12] MEDS: cefTRIAXone\\ROCEPHIN 1 GM in Sodium Chloride 0.9% 100 ML IVPB SCH (12:31)
[2022-06-12] MEDS: Furosemide 40 MG TAB PO SCH (16:20)
[2022-06-12] MEDS: Melatonin 3 MG TAB PO PRN (22:35)
[2022-06-13] MEDS: Ipratropium/Albuterol 3 ML NEB NEB SCH ×2 (00:52→09:06)
[2022-06-13] MEDS: predniSONE 20 MG TAB PO SCH (08:05)
[2022-06-13] MEDS: Cyanocobalamin (Vitamin B-12) 1,000 MCG TAB PO SCH (08:06)
[2022-06-13] MEDS: Furosemide 40 MG TAB PO SCH (08:06)
[2022-06-13] MEDS: Metoprolol Tartrate 25 MG TAB PO SCH (08:06)
[2022-06-13] MEDS: Linezolid 600 MG in Premix Bag 1 BAG IVPB SCH (08:07)
[2022-06-13 08:09] LABS: #Basophils 0.1 thou/uL (0.0-0.2); #Eosinphils 0.3 thou/uL (0.0-0.7); #Lymphocytes 2.7 thou/uL (1.20-3.40); #Monocytes 1.3 thou/uL (0.11-0.59); #Neutrophils 12.8 thou/uL (1.40-6.50); %Basophils 0.4 % (0.0-1.0); %Eosinophils 1.5 % (0.0-10.0); %Lymphocytes 15.5 % (21.0-51.0); %Monocytes 7.7 % (0.0-10.0); %Neutrophils 74.9 % (42.0-75.0); Hemoglobin 14.3 g/dL (12.0-16.0); Mean Corpuscular Hemoglobin 28.6 pg (27.0-31.0); Mean Corpuscular Volume 86.9 fl (78.0-98.0); Mean Platelet Volume 10.1 fL (7.4-10.4); Platelet Count 293 10x3/uL (130-400); RBC Distribution Width 15.2 % (11.5-14.5); Red Blood Cell (RBC) Count 5.01 mill/uL (4.20-5.40); White Blood Cell (WBC) Count 17.1 10x3/uL (4.8-10.8)
[2022-06-13 09:00] LABS: Anion Gap 13 mmol/L (10-20); BUN (Urea Nitrogen) 25 mg/dL (9.8-20.1); Calc. Creatinine Clearance 62 mL/min (70-130); Calcium 8.7 mg/dL (7.8-10.44); Carbon Dioxide 30 mmol/L (23-31); Chloride 91 mmol/L (98-107); Estimated GFR 61; Glucose 110 mg/dL (83-110); Magnesium 2.3 mg/dL (1.6-2.6); Potassium 3.5 mmol/L (3.5-5.1); Sodium 130 mmol/L (136-145)
[2022-06-13] MEDS: Budesonide 0.5 MG/2 ML NEB NEB SCH (09:05)
[2022-06-13 11:54] VITALS: BP 148/76; TEMP 98.5
[2022-06-13] MEDS: Nystatin Powder 15 GM BOT TOP SCH (14:54)
[2022-06-14] MEDS ORDERED: Furosemide 40 MG TAB PO SCH (07:30)
== END 2022-06-13 12:30 | DRG 177 ==
LOC: ERS 12:55 → ERHOLD 14:51 → IMCU/EMU 20:11 → 2NO 06-02 20:46 → CCU 06-04 15:24 → IMCU/EMU 06-06 12:51 → T4-B 06-12 19:34
PROVIDERS: ADMIT Internal Medicine; ATTEND Family Medicine
PROC: 4A133R1 Monitoring of Arterial Saturation, Peripheral, Percutaneous Approach (ICD-10-PCS; 2022-06-01)
PROC: 5A09357 Assistance with Respiratory Ventilation, Less than 24 Consecutive Hours, Continuous Positive Airway Pressure (ICD-10-PCS; principal; 2022-06-04)
DX: J15.212 Pneumonia due to Methicillin resistant Staphylococcus aureus (principal); G93.41 Metabolic encephalopathy; I50.33 Acute on chronic diastolic (congestive) heart failure; J96.21 Acute and chronic respiratory failure with hypoxia; I13.0 Hypertensive heart and chronic kidney disease with heart failure and stage 1 through stage 4 chronic kidney disease, or unspecified chronic kidney disease; Z68.41 Body mass index [BMI] 40.0-44.9, adult; J44.1 Chronic obstructive pulmonary disease with (acute) exacerbation; J44.0 Chronic obstructive pulmonary disease with (acute) lower respiratory infection; E66.2 Morbid (severe) obesity with alveolar hypoventilation; J69.0 Pneumonitis due to inhalation of food and vomit; K90.0 Celiac disease; Z20.822 Contact with and (suspected) exposure to COVID-19; N18.30 Chronic kidney disease, stage 3 unspecified; M79.7 Fibromyalgia; F41.9 Anxiety disorder, unspecified; F32.A Depression, unspecified; E03.9 Hypothyroidism, unspecified; K21.9 Gastro-esophageal reflux disease without esophagitis; K11.21 Acute sialoadenitis; G25.2 Other specified forms of tremor; K59.00 Constipation, unspecified; I48.91 Unspecified atrial fibrillation; Z99.81 Dependence on supplemental oxygen; Z90.49 Acquired absence of other specified parts of digestive tract; Z87.891 Personal history of nicotine dependence; Z88.0 Allergy status to penicillin; Z88.2 Allergy status to sulfonamides; Z88.5 Allergy status to narcotic agent; Z88.8 Allergy status to other drugs, medicaments and biological substances; Z79.51 Long term (current) use of inhaled steroids; Z79.890 Hormone replacement therapy; Z79.899 Other long term (current) drug therapy; M79.662 Pain in left lower leg; M79.661 Pain in right lower leg; W18.11XA Fall from or off toilet without subsequent striking against object, initial encounter
CPT/HCPCS: 36415; 36416; 36600; 51702; 70450; 71045; 80048; 80053; 81003; 81015; 82550; 82805; 83605; 83690; 83735; 83880; 83930; 83935; 84145; 84300; 84443; 84484; 84540; 84550; 85025; 87040; 87070; 87077; 87186; 87205; 87449; 87899; 93005; 93010; 93306; 94640; 94660; 94664; 96365; 96367; 96375; J0360; J0456; J0692; J0696; J1100; J1650; J1885; J1940; J1956; J2020; J2060; J2405; J2920; J3475; J3480; J3490; J7050; J7512; J7611; J7620; J7626; U0003; U0005

== ENCOUNTER 2022-06-23 12:56 | Inpatient (IN) | payer MEDICARE, MEDICAID ==
[~2022-06-23 12:56] MED LIST changes: +Iopamidol 370 76% 100 ML VIAL ONE; -Iopamidol-370 76% 500 ML 1 ML ONE
[2022-06-23 14:46] LABS: #Eosinphils 0.1 thou/uL (0.0-0.7); #Monocytes 0.7 thou/uL (0.11-0.59); #Neutrophils 12.7 thou/uL (1.40-6.50); %Basophils 0.1 % (0.0-1.0); %Eosinophils 0.3 % (0.0-10.0); %Monocytes 4.8 % (0.0-10.0); %Neutrophils 87.1 % (42.0-75.0); Hemoglobin 11.4 g/dL (12.0-16.0); Mean Corpuscular HGB CONC 32.1 g/dL (32.0-36.0); Mean Corpuscular Hemoglobin 26.5 pg (27.0-31.0); Mean Corpuscular Volume 82.6 fl (78.0-98.0); Mean Platelet Volume 10.4 fL (7.4-10.4); Platelet Count 278 10x3/uL (130-400); White Blood Cell (WBC) Count 14.6 10x3/uL (4.8-10.8)
[2022-06-23] MEDS ORDERED: Aspirin Chewable 81 MG TAB ONE (15:00)
[2022-06-23 15:20] LABS: ALT (SGPT) 34 U/L (8-55); AST (SGOT) 18 U/L (5-34); Albumin 3.1 g/dL (3.4-4.8); Alkaline Phosphatase 127 U/L (40-110); Anion Gap 15 mmol/L (10-20); BUN (Urea Nitrogen) 34 mg/dL (9.8-20.1); Bilirubin, Total 0.9 mg/dL (0.2-1.2); Calc. Creatinine Clearance 0 mL/min (70-130); Carbon Dioxide 31 mmol/L (23-31); Chloride 83 mmol/L (98-107); Estimated GFR 48; Globulin 3.3 g/dL (2.4-3.5); Glucose 157 mg/dL (83-110); Magnesium 1.8 mg/dL (1.6-2.6); Protein, Total 6.4 g/dL (5.8-8.1); Sodium 127 mmol/L (136-145)
[2022-06-23] MEDS ORDERED: Potassium Chloride 20 MEQ TAB ONE (15:49)
[2022-06-23] MEDS ORDERED: Potassium Chloride 20 MEQ/100 ML PREMIX BAG ONE (15:49)
[2022-06-23] MEDS ORDERED: Senokot S 8.6-50 MG TAB PO PRN (16:56)
[2022-06-23] MEDS ORDERED: Acetaminophen 325 MG TAB PO PRN (16:56)
[2022-06-23] MEDS ORDERED: Calcium Carbonate 500 MG ChewTAB PO PRN (16:56)
[2022-06-23] MEDS ORDERED: Ondansetron ODT 4 MG TAB PO PRN (16:56)
[2022-06-23] MEDS ORDERED: Ondansetron PF 4 MG/2 ML Vial IVP PRN (16:56)
[2022-06-23 18:53] VITALS: BMI 36.1
[2022-06-23] MEDS: Gabapentin 300 MG CAP PO SCH (20:33)
[2022-06-23 20:53] LABS: Troponin I 0.027 ng/mL (< 0.028)
[2022-06-23] MEDS: NS 0.9% w/ 20 MEQ KCL 1,000 ML/1,000 ML BAG IV SCH (21:53)
[2022-06-23 22:48] LABS: Troponin I 0.015 ng/mL (< 0.028)
[2022-06-23 22:51] LABS: Calcium 8.2 mg/dL (7.8-10.44); Chloride 91 mmol/L (98-107); Sodium 129 mmol/L (136-145)
[2022-06-23 23:12] LABS: Glucose 174 mg/dL (83-110)
[2022-06-23 23:14] LABS: Anion Gap 19 mmol/L (10-20); Carbon Dioxide 23 mmol/L (23-31)
[2022-06-23 23:16] LABS: Calc. Creatinine Clearance 48 mL/min (70-130); Estimated GFR 51
[2022-06-23 23:17] LABS: BUN (Urea Nitrogen) 35 mg/dL (9.8-20.1)
[2022-06-24 04:37] LABS: #Eosinphils 0.2 thou/uL (0.0-0.7); #Monocytes 0.8 thou/uL (0.11-0.59); #Neutrophils 11.6 thou/uL (1.40-6.50); %Basophils 0.1 % (0.0-1.0); %Lymphocytes 11.7 % (21.0-51.0); %Monocytes 5.3 % (0.0-10.0); %Neutrophils 81.3 % (42.0-75.0); Hemoglobin 10.7 g/dL (12.0-16.0); Mean Corpuscular HGB CONC 32.3 g/dL (32.0-36.0); Mean Corpuscular Hemoglobin 26.2 pg (27.0-31.0); Mean Corpuscular Volume 80.9 fl (78.0-98.0); Mean Platelet Volume 10.7 fL (7.4-10.4); Platelet Count 290 10x3/uL (130-400); RBC Distribution Width 16.6 % (11.5-14.5); Red Blood Cell (RBC) Count 4.09 mill/uL (4.20-5.40); White Blood Cell (WBC) Count 14.3 10x3/uL (4.8-10.8)
[2022-06-24 05:03] LABS: ALT (SGPT) 30 U/L (8-55); AST (SGOT) 16 U/L (5-34); Alkaline Phosphatase 119 U/L (40-110); Anion Gap 13 mmol/L (10-20); BUN (Urea Nitrogen) 33 mg/dL (9.8-20.1); Bilirubin, Total 0.9 mg/dL (0.2-1.2); Calc. Creatinine Clearance 51 mL/min (70-130); Calcium 9.1 mg/dL (7.8-10.44); Carbon Dioxide 30 mmol/L (23-31); Chloride 91 mmol/L (98-107); Estimated GFR 55; Globulin 3.2 g/dL (2.4-3.5); Glucose 97 mg/dL (83-110); Protein, Total 6.2 g/dL (5.8-8.1); Sodium 132 mmol/L (136-145)
[2022-06-24 05:05] LABS: Potassium 2.3 mmol/L (3.5-5.1)
[2022-06-24] MEDS ORDERED: Electrolyte Replacement Protocol 1 EACH FS SCH (05:30)
[2022-06-24] MEDS: Potassium Chloride 40 MEQ in Sodium Chloride 0.9% 250 ML 250 ML IVPB SCH ×2 (06:07→09:34)
[2022-06-24] MEDS: Levothyroxine Sodium 100 MCG TAB PO SCH (06:08)
[2022-06-24 06:31] LABS: Magnesium 1.7 mg/dL (1.6-2.6)
[2022-06-24] MEDS ORDERED: Magnesium 2 GM/50 ML(in water) 2 GM in Premix Bag 1 BAG IVPB SCH (08:00)
[2022-06-24] MEDS: Gabapentin 300 MG CAP PO SCH ×2 (08:15→22:45)
[2022-06-24] MEDS: NS 0.9% w/ 20 MEQ KCL 1,000 ML/1,000 ML BAG IV SCH (08:15)
[2022-06-24 15:36] LABS: Anion Gap 11 mmol/L (10-20); BUN (Urea Nitrogen) 32 mg/dL (9.8-20.1); Calc. Creatinine Clearance 57 mL/min (70-130); Carbon Dioxide 28 mmol/L (23-31); Chloride 97 mmol/L (98-107); Estimated GFR 62; Glucose 131 mg/dL (83-110); Potassium 3.1 mmol/L (3.5-5.1); Sodium 133 mmol/L (136-145)
[2022-06-24] MEDS ORDERED: Potassium Chloride 20 MEQ TAB PO SCH (18:45)
[2022-06-24 22:05] LABS: #Eosinphils 0.4 thou/uL (0.0-0.7); #Monocytes 0.6 thou/uL (0.11-0.59); %Basophils 0.4 % (0.0-1.0); %Eosinophils 3.3 % (0.0-10.0); %Lymphocytes 14.3 % (21.0-51.0); %Monocytes 5.7 % (0.0-10.0); %Neutrophils 75.6 % (42.0-75.0); Hemoglobin 10.6 g/dL (12.0-16.0); Mean Corpuscular HGB CONC 30.3 g/dL (32.0-36.0); Mean Corpuscular Hemoglobin 26.8 pg (27.0-31.0); Mean Platelet Volume 10.6 fL (7.4-10.4); Platelet Count 280 10x3/uL (130-400); Red Blood Cell (RBC) Count 3.95 mill/uL (4.20-5.40); White Blood Cell (WBC) Count 10.6 10x3/uL (4.8-10.8)
[2022-06-24 22:27] LABS: Anion Gap 14 mmol/L (10-20); BUN (Urea Nitrogen) 27 mg/dL (9.8-20.1); Calc. Creatinine Clearance 61 mL/min (70-130); Calcium 8.7 mg/dL (7.8-10.44); Carbon Dioxide 24 mmol/L (23-31); Chloride 98 mmol/L (98-107); Estimated GFR 67; Glucose 116 mg/dL (83-110); Magnesium 2.1 mg/dL (1.6-2.6); Mean Corpuscular Volume 88.6 fl (78.0-98.0); Potassium 3.2 mmol/L (3.5-5.1); Sodium 133 mmol/L (136-145)
[2022-06-24] MEDS: DULoxetine 60 MG CAP PO SCH (22:45)
[2022-06-24 23:26] LABS: Troponin I 0.015 ng/mL (< 0.028)
[2022-06-25] MEDS ORDERED: Sodium Chloride 0.9% 1,000 ML IV SCH
[2022-06-25 00:44] LABS: Bilirubin Negative (Negative); Blood, Urine Negative (Negative); CAUTI Indications for Culture Alt mental st,lethar; Clarity Clear (Clear); Glucose, Urine (Dipstick) Normal (Negative); Ketone, Urine Negative (Negative); Leukocyte Negative Leu/uL (Negative); Nitrite Negative (Negative); Protein, Urine (Dipstick) Negative (Neg-Trace); RBC/HPF 0-3 HPF (0-3); Specific Gravity, Urine 1.011 (1.002-1.036); Squamous Epithelial None Seen HPF (0-3); Urobilinogen Normal mg/dL (Less than 2); WBC/HPF 0-3 HPF (0-3)
[2022-06-25 00:47] LABS: Bacteria/HPF 1+ HPF (None Seen)
[2022-06-25 00:48] LABS: Urine Culture Reflex No No
[2022-06-25] MEDS: Potassium Chloride 20 MEQ in Premix Bag 1 BAG IVPB SCH ×2 (01:20→03:33)
[2022-06-25 05:05] LABS: Anion Gap 11 mmol/L (10-20); BUN (Urea Nitrogen) 26 mg/dL (9.8-20.1); Calc. Creatinine Clearance 63 mL/min (70-130); Calcium 8.8 mg/dL (7.8-10.44); Carbon Dioxide 28 mmol/L (23-31); Chloride 97 mmol/L (98-107); Estimated GFR 70; Glucose 98 mg/dL (83-110); Magnesium 2.1 mg/dL (1.6-2.6); Potassium 3.1 mmol/L (3.5-5.1); Sodium 133 mmol/L (136-145)
[2022-06-25] MEDS: Levothyroxine Sodium 100 MCG TAB PO SCH (05:33)
[2022-06-25] MEDS ORDERED: Potassium Chloride 20 MEQ TAB PO SCH (08:00)
[2022-06-25] MEDS: Gabapentin 300 MG CAP PO SCH ×2 (10:37→21:51)
[2022-06-25 13:17] LABS: Anion Gap 11 mmol/L (10-20); BUN (Urea Nitrogen) 21 mg/dL (9.8-20.1); Calc. Creatinine Clearance 72 mL/min (70-130); Calcium 8.5 mg/dL (7.8-10.44); Carbon Dioxide 24 mmol/L (23-31); Chloride 100 mmol/L (98-107); Estimated GFR 76; Glucose 108 mg/dL (83-110); Potassium 3.2 mmol/L (3.5-5.1); Sodium 132 mmol/L (136-145)
[2022-06-25] MEDS: Potassium Chloride 20 MEQ TAB PO SCH (17:14)
[2022-06-25] MEDS: DULoxetine 60 MG CAP PO SCH (21:51)
[2022-06-26] MEDS: Levothyroxine Sodium 100 MCG TAB PO SCH (05:16)
[2022-06-26 05:29] LABS: Anion Gap 10 mmol/L (10-20); BUN (Urea Nitrogen) 17 mg/dL (9.8-20.1); Calc. Creatinine Clearance 74 mL/min (70-130); Calcium 8.6 mg/dL (7.8-10.44); Carbon Dioxide 26 mmol/L (23-31); Chloride 101 mmol/L (98-107); Estimated GFR 80; Glucose 85 mg/dL (83-110); Magnesium 1.8 mg/dL (1.6-2.6); Potassium 3.8 mmol/L (3.5-5.1); Sodium 133 mmol/L (136-145)
[2022-06-26] MEDS ORDERED: Magnesium 2 GM/50 ML(in water) 2 GM in Premix Bag 1 BAG IVPB SCH (08:00)
[2022-06-26] MEDS: Potassium Chloride 20 MEQ TAB PO SCH (09:13)
[2022-06-26] MEDS: Gabapentin 300 MG CAP PO SCH (09:14)
[2022-06-26] MEDS ORDERED: HYDROcodone/Acetaminophen 5/325 mg Tablet PO PRN (09:55)
[2022-06-26] MEDS ORDERED: HYDROcodone/Acetaminophen 5/325 mg Tablet PO SCH (10:15)
[2022-06-26 11:59] VITALS: BP 132/89; TEMP 97.7
== END 2022-06-26 14:34 | DRG 314 ==
LOC: ERS 12:56 → 2NO 18:11 → OBSVTOIN 06-24 12:17
PROVIDERS: ADMIT Internal Medicine; ATTEND Family Medicine
DX: I95.9 Hypotension, unspecified (principal); J96.21 Acute and chronic respiratory failure with hypoxia; E87.1 Hypo-osmolality and hyponatremia; I50.32 Chronic diastolic (congestive) heart failure; I13.0 Hypertensive heart and chronic kidney disease with heart failure and stage 1 through stage 4 chronic kidney disease, or unspecified chronic kidney disease; N17.9 Acute kidney failure, unspecified; J44.1 Chronic obstructive pulmonary disease with (acute) exacerbation; R00.1 Bradycardia, unspecified; E86.0 Dehydration; I48.91 Unspecified atrial fibrillation; R55 Syncope and collapse; E78.5 Hyperlipidemia, unspecified; J44.9 Chronic obstructive pulmonary disease, unspecified; R00.2 Palpitations; D63.1 Anemia in chronic kidney disease; E03.9 Hypothyroidism, unspecified; F41.9 Anxiety disorder, unspecified; F32.A Depression, unspecified; I87.2 Venous insufficiency (chronic) (peripheral); K90.0 Celiac disease; E87.6 Hypokalemia; N18.30 Chronic kidney disease, stage 3 unspecified; Z88.5 Allergy status to narcotic agent; Z99.81 Dependence on supplemental oxygen; Z88.2 Allergy status to sulfonamides; Z88.8 Allergy status to other drugs, medicaments and biological substances; Z91.011 Allergy to milk products; Z79.890 Hormone replacement therapy; Z79.51 Long term (current) use of inhaled steroids; Z79.52 Long term (current) use of systemic steroids; Z79.899 Other long term (current) drug therapy; E87.8 Other disorders of electrolyte and fluid balance, not elsewhere classified
CPT/HCPCS: 36415; 36416; 70450; 71045; 71275; 80048; 80053; 81001; 82553; 83605; 83735; 83880; 84146; 84443; 84484; 85025; 93005; 93010; 94760; 96365; 96366; 96374; 96375; G0378; J1650; J3475; J3480; J7050; Q9967

== ENCOUNTER 2022-10-18 01:29 | Emergency (ER) | payer MEDICARE, MEDICAID ==
[2022-10-18 02:37] LABS: #Eosinphils 0.1 thou/uL (0.0-0.7); #Monocytes 1.4 thou/uL (0.11-0.59); #Neutrophils 8.8 thou/uL (1.40-6.50); %Basophils 0.3 % (0.0-1.0); %Eosinophils 0.8 % (0.0-10.0); %Lymphocytes 19.5 % (21.0-51.0); %Monocytes 10.5 % (0.0-10.0); %Neutrophils 68.4 % (42.0-75.0); Hematocrit 37.5 % (36.0-47.0); Hemoglobin 12.1 g/dL (12.0-16.0); Mean Corpuscular HGB CONC 32.3 g/dL (32.0-36.0); Mean Corpuscular Hemoglobin 28.1 pg (27.0-31.0); Mean Platelet Volume 11.1 fL (7.4-10.4); Platelet Count 274 10x3/uL (130-400); RBC Distribution Width 14.6 % (11.5-14.5); Red Blood Cell (RBC) Count 4.31 mill/uL (4.20-5.40); White Blood Cell (WBC) Count 12.8 10x3/uL (4.8-10.8)
[2022-10-18 03:04] LABS: ALT (SGPT) 27 U/L (8-55); AST (SGOT) 15 U/L (5-34); Albumin 3.4 g/dL (3.4-4.8); Alkaline Phosphatase 81 U/L (40-110); Anion Gap 12 mmol/L (10-20); BUN (Urea Nitrogen) 22 mg/dL (9.8-20.1); Bilirubin, Total 0.7 mg/dL (0.2-1.2); Calc. Creatinine Clearance 0 mL/min (70-130); Calcium 9.9 mg/dL (7.8-10.44); Carbon Dioxide 28 mmol/L (23-31); Chloride 102 mmol/L (98-107); Estimated GFR 41; Globulin 3.4 g/dL (2.4-3.5); Glucose 94 mg/dL (83-110); Potassium 3.9 mmol/L (3.5-5.1); Protein, Total 6.8 g/dL (5.8-8.1); Sodium 138 mmol/L (136-145)
== END 2022-10-18 06:01 | disposition home or self-care (01) ==
LOC: ERS 01:29
DX: M25.552 Pain in left hip (principal); I13.0 Hypertensive heart and chronic kidney disease with heart failure and stage 1 through stage 4 chronic kidney disease, or unspecified chronic kidney disease; I50.9 Heart failure, unspecified; N18.30 Chronic kidney disease, stage 3 unspecified; J44.9 Chronic obstructive pulmonary disease, unspecified; K21.9 Gastro-esophageal reflux disease without esophagitis
CPT/HCPCS: 36415; 71045; 80053; 85025; 93005

== ENCOUNTER 2022-10-18 23:18 | Inpatient (IN) | payer MEDICARE, MEDICAID ==
[~2022-10-18 23:18] MED LIST changes: -Iopamidol 370 76% 100 ML VIAL ONE; +Iopamidol-370 76% 500 ML MDV (1 ML CHARGE) ONE
[2022-10-19] MEDS ORDERED: Cefepime 2 GM VIAL ONE (00:29)
[2022-10-19 00:41] LABS: Bacteria/HPF 4+ HPF (None Seen); Bilirubin Negative (Negative); Blood, Urine Negative (Negative); CAUTI Indications for Culture Alt mental st,lethar; Clarity Turbid (Clear); Glucose, Urine (Dipstick) Normal (Negative); Ketone, Urine Negative (Negative); Leukocyte 500 Leu/uL (Negative); Nitrite 1+ (Negative); Protein, Urine (Dipstick) 10 mg/dL (Neg-Trace); RBC/HPF 0-3 HPF (0-3); Specific Gravity, Urine 1.013 (1.002-1.036); Squamous Epithelial None Seen HPF (0-3); Urobilinogen Normal mg/dL (Less than 2); WBC/HPF Greater than 50 HPF (0-3); pH, Urine 7.5 (5.0-9.0)
[2022-10-19 00:45] LABS: Urine Culture Reflex Yes Yes
[2022-10-19 01:28] LABS: #Basophils 0.1 thou/uL (0.0-0.2); #Eosinphils 0.2 thou/uL (0.0-0.7); #Monocytes 1.4 thou/uL (0.11-0.59); #Neutrophils 11.8 thou/uL (1.40-6.50); %Basophils 0.3 % (0.0-1.0); %Lymphocytes 14.5 % (21.0-51.0); %Neutrophils 74.7 % (42.0-75.0); Hemoglobin 12.3 g/dL (12.0-16.0); Mean Corpuscular HGB CONC 30.8 g/dL (32.0-36.0); Mean Corpuscular Hemoglobin 28.1 pg (27.0-31.0); Platelet Count 274 10x3/uL (130-400); RBC Distribution Width 14.8 % (11.5-14.5); Red Blood Cell (RBC) Count 4.38 mill/uL (4.20-5.40); White Blood Cell (WBC) Count 15.8 10x3/uL (4.8-10.8)
[2022-10-19 01:33] LABS: Mean Corpuscular Volume 91.3 fl (78.0-98.0)
[2022-10-19 01:42] LABS: INR-International Normal Ratio 1.1; PTT 25.6 sec (22.9-36.1); Prothrombin Time 14.4 sec (12.0-14.7)
[2022-10-19] MEDS ORDERED: Vancomycin 1.5 GRAM/300 ML BAG 1.5 GM in Premix Bag 1 BAG IVPB SCH (01:45)
[2022-10-19 01:49] LABS: ALT (SGPT) 23 U/L (8-55); AST (SGOT) 15 U/L (5-34); Albumin 3.3 g/dL (3.4-4.8); Alkaline Phosphatase 80 U/L (40-110); Anion Gap 13 mmol/L (10-20); BUN (Urea Nitrogen) 19 mg/dL (9.8-20.1); Bilirubin, Total 0.8 mg/dL (0.2-1.2); Calc. Creatinine Clearance 0 mL/min (70-130); Calcium 9.8 mg/dL (7.8-10.44); Carbon Dioxide 26 mmol/L (23-31); Chloride 102 mmol/L (98-107); Estimated GFR 43; Globulin 3.4 g/dL (2.4-3.5); Glucose 73 mg/dL (83-110); Potassium 3.4 mmol/L (3.5-5.1); Protein, Total 6.7 g/dL (5.8-8.1); Sodium 138 mmol/L (136-145)
[2022-10-19 02:04] LABS: Troponin I 0.011 ng/mL (< 0.028)
[2022-10-19] MEDS ORDERED: Ondansetron ODT 4 MG TAB PO PRN (03:24)
[2022-10-19] MEDS ORDERED: Senokot S 8.6-50 MG TAB PO PRN (03:24)
[2022-10-19] MEDS ORDERED: Calcium Carbonate 500 MG ChewTAB PO PRN (03:24)
[2022-10-19] MEDS ORDERED: Ipratropium/Albuterol 3 ML NEB IPPB PRN (03:27)
[2022-10-19] MEDS ORDERED: Electrolyte Replacement Protocol 1 EACH FS PRN (03:36)
[2022-10-19] MEDS ORDERED: Potassium Chloride 20 MEQ TAB PO SCH (04:00)
[2022-10-19 04:28] LABS: #Basophils 0.1 thou/uL (0.0-0.2); #Eosinphils 0.1 thou/uL (0.0-0.7); #Monocytes 1.4 thou/uL (0.11-0.59); #Neutrophils 12.5 thou/uL (1.40-6.50); %Basophils 0.3 % (0.0-1.0); %Eosinophils 0.9 % (0.0-10.0); %Lymphocytes 10.9 % (21.0-51.0); %Monocytes 8.7 % (0.0-10.0); %Neutrophils 78.6 % (42.0-75.0); Hematocrit 36.6 % (36.0-47.0); Hemoglobin 11.8 g/dL (12.0-16.0); Mean Corpuscular HGB CONC 32.2 g/dL (32.0-36.0); Mean Corpuscular Hemoglobin 28.3 pg (27.0-31.0); Mean Platelet Volume 11.1 fL (7.4-10.4); Platelet Count 267 10x3/uL (130-400); RBC Distribution Width 14.6 % (11.5-14.5); Red Blood Cell (RBC) Count 4.17 mill/uL (4.20-5.40)
[2022-10-19 04:37] LABS: Mean Corpuscular Volume 87.8 fl (78.0-98.0)
[2022-10-19 04:46] LABS: Anion Gap 14 mmol/L (10-20); BUN (Urea Nitrogen) 18 mg/dL (9.8-20.1); Calc. Creatinine Clearance 0 mL/min (70-130); Calcium 9.6 mg/dL (7.8-10.44); Carbon Dioxide 25 mmol/L (23-31); Chloride 104 mmol/L (98-107); Estimated GFR 45; Glucose 88 mg/dL (83-110); Potassium 3.7 mmol/L (3.5-5.1); Sodium 139 mmol/L (136-145)
[2022-10-19 04:57] LABS: Troponin I Less than 0.010 ng/mL (< 0.028)
[2022-10-19] MEDS: Levothyroxine Sodium 125 MCG TAB PO SCH (05:24)
[2022-10-19] MEDS ORDERED: Lorazepam 0.5 MG TAB PO PRN (05:58)
[2022-10-19 08:17] LABS: Troponin I Less than 0.010 ng/mL (< 0.028)
[2022-10-19] MEDS: Sertraline 100 MG TAB PO SCH (08:39)
[2022-10-19] MEDS: Famotidine 20 MG TAB PO SCH (08:40)
[2022-10-19] MEDS: Furosemide 40 MG TAB PO SCH (08:40)
[2022-10-19] MEDS: Gabapentin 300 MG CAP PO SCH ×2 (08:40→20:43)
[2022-10-19] MEDS ORDERED: LevoFLOXacin 750 mg/D5W 750 MG in Premix Bag 1 BAG IVPB SCH (09:00)
[2022-10-19] MEDS: Polyethylene Glycol 3350 17 GM Packet PO SCH (09:18)
[2022-10-19] MEDS ORDERED: Acetaminophen 650 MG Suppository PR PRN (09:39)
[2022-10-19] MEDS: Amlodipine 5 MG TAB PO SCH ×2 (09:59→20:43)
[2022-10-19] MEDS: Carvedilol 6.25 MG TAB PO SCH ×2 (09:59→20:43)
[2022-10-19] MEDS ORDERED: Cefepime 1 GM in Sodium Chloride 0.9% 100 ML IVPB SCH (13:00)
[2022-10-19] MEDS ORDERED: Meropenem 1 GM in Sodium Chloride 0.9% 100 ML IVPB SCH (14:00)
[2022-10-19] MEDS: DULoxetine 60 MG CAP PO SCH (20:43)
[2022-10-19] MEDS: Meropenem 1 GM in Sodium Chloride 0.9% 100 ML IVPB SCH (21:08)
[2022-10-20] MEDS: Levothyroxine Sodium 125 MCG TAB PO SCH (04:10)
[2022-10-20 05:06] LABS: #Basophils 0.1 thou/uL (0.0-0.2); #Eosinphils 0.2 thou/uL (0.0-0.7); #Monocytes 0.8 thou/uL (0.11-0.59); #Neutrophils 10.9 thou/uL (1.40-6.50); %Basophils 0.6 % (0.0-1.0); %Eosinophils 1.3 % (0.0-10.0); %Lymphocytes 11.4 % (21.0-51.0); %Monocytes 6.2 % (0.0-10.0); %Neutrophils 80.1 % (42.0-75.0); Hematocrit 40.3 % (36.0-47.0); Hemoglobin 12.7 g/dL (12.0-16.0); Mean Corpuscular HGB CONC 31.5 g/dL (32.0-36.0); Mean Corpuscular Hemoglobin 28.3 pg (27.0-31.0); Mean Platelet Volume 11.9 fL (7.4-10.4); Platelet Count 306 10x3/uL (130-400); RBC Distribution Width 14.8 % (11.5-14.5); Red Blood Cell (RBC) Count 4.48 mill/uL (4.20-5.40); White Blood Cell (WBC) Count 13.6 10x3/uL (4.8-10.8)
[2022-10-20 05:31] LABS: Anion Gap 15 mmol/L (10-20); BUN (Urea Nitrogen) 15 mg/dL (9.8-20.1); Calc. Creatinine Clearance 47 mL/min (70-130); Calcium 9.8 mg/dL (7.8-10.44); Carbon Dioxide 27 mmol/L (23-31); Chloride 104 mmol/L (98-107); Estimated GFR 50; Glucose 60 mg/dL (83-110); Potassium 3.2 mmol/L (3.5-5.1); Sodium 143 mmol/L (136-145)
[2022-10-20] MEDS ORDERED: Dextrose 50% Abboject 50 ML SYRINGE SLOW IVP PRN (05:52)
[2022-10-20] MEDS ORDERED: Potassium Chloride 20 MEQ TAB PO SCH ×2 (08:00→12:00)
[2022-10-20] MEDS: Amlodipine 5 MG TAB PO SCH ×2 (09:37→21:11)
[2022-10-20] MEDS: Gabapentin 300 MG CAP PO SCH ×2 (09:37→21:11)
[2022-10-20] MEDS: Carvedilol 6.25 MG TAB PO SCH ×2 (09:37→21:11)
[2022-10-20] MEDS: Sertraline 100 MG TAB PO SCH (09:38)
[2022-10-20] MEDS: Furosemide 40 MG TAB PO SCH (09:38)
[2022-10-20] MEDS: Famotidine 20 MG TAB PO SCH (09:39)
[2022-10-20] MEDS: Meropenem 1 GM in Sodium Chloride 0.9% 100 ML IVPB SCH ×2 (09:40→21:12)
[2022-10-20] MEDS: Polyethylene Glycol 3350 17 GM Packet PO SCH ×2 (09:40→09:57)
[2022-10-20 12:22] VITALS: BMI 35.5
[2022-10-20] MEDS: Acetaminophen 325 MG TAB PO PRN (15:49)
[2022-10-20] MEDS: DULoxetine 60 MG CAP PO SCH (21:12)
[2022-10-21 05:00] LABS: #Basophils 0.1 thou/uL (0.0-0.2); #Eosinphils 0.3 thou/uL (0.0-0.7); #Monocytes 1.1 thou/uL (0.11-0.59); #Neutrophils 9.3 thou/uL (1.40-6.50); %Basophils 0.4 % (0.0-1.0); %Eosinophils 2.4 % (0.0-10.0); %Lymphocytes 15.3 % (21.0-51.0); %Monocytes 8.4 % (0.0-10.0); %Neutrophils 73.1 % (42.0-75.0); Hematocrit 38.4 % (36.0-47.0); Hemoglobin 12.2 g/dL (12.0-16.0); Mean Corpuscular HGB CONC 31.8 g/dL (32.0-36.0); Mean Corpuscular Hemoglobin 28.5 pg (27.0-31.0); Mean Corpuscular Volume 89.7 fl (78.0-98.0); Mean Platelet Volume 11.6 fL (7.4-10.4); Platelet Count 285 10x3/uL (130-400); Red Blood Cell (RBC) Count 4.28 mill/uL (4.20-5.40); White Blood Cell (WBC) Count 12.7 10x3/uL (4.8-10.8)
[2022-10-21] MEDS: Levothyroxine Sodium 125 MCG TAB PO SCH (05:38)
[2022-10-21 05:42] LABS: Anion Gap 11 mmol/L (10-20); BUN (Urea Nitrogen) 19 mg/dL (9.8-20.1); Calc. Creatinine Clearance 36 mL/min (70-130); Calcium 9.3 mg/dL (7.8-10.44); Carbon Dioxide 28 mmol/L (23-31); Chloride 102 mmol/L (98-107); Estimated GFR 37; Glucose 102 mg/dL (83-110); Potassium 3.8 mmol/L (3.5-5.1); Sodium 137 mmol/L (136-145)
[2022-10-21] MEDS ORDERED: LevoFLOXacin 500 mg/D5W 500 MG in Premix Bag 1 BAG IVPB SCH (09:00)
[2022-10-21] MEDS: Sertraline 100 MG TAB PO SCH (09:48)
[2022-10-21] MEDS: Meropenem 1 GM in Sodium Chloride 0.9% 100 ML IVPB SCH (09:48)
[2022-10-21] MEDS: Acetaminophen 325 MG TAB PO PRN (09:50)
[2022-10-21] MEDS: Carvedilol 6.25 MG TAB PO SCH ×2 (09:51→21:42)
[2022-10-21] MEDS: Gabapentin 300 MG CAP PO SCH ×2 (09:51→21:42)
[2022-10-21] MEDS: Amlodipine 5 MG TAB PO SCH ×2 (09:51→21:42)
[2022-10-21] MEDS: Furosemide 40 MG TAB PO SCH (09:51)
[2022-10-21] MEDS: Famotidine 20 MG TAB PO SCH (09:51)
[2022-10-21] MEDS: Polyethylene Glycol 3350 17 GM Packet PO SCH (09:52)
[2022-10-21] MEDS ORDERED: Doxycycline 25 MG/5 ML Oral Suspension PO SCH (21:00)
[2022-10-21] MEDS ORDERED: Doxycycline 100 MG CAP PO SCH (21:00)
[2022-10-21] MEDS: DULoxetine 60 MG CAP PO SCH (21:41)
[2022-10-21 23:13] VITALS: BP 114/46; TEMP 98.2
== END 2022-10-22 | disposition home or self-care (01) | DRG 871 ==
LOC: ERS 23:18 → 2SE 10-19 03:34
PROVIDERS: ADMIT Student in an Organized Health Care Education/Training Program; ATTEND Hospitalist
DX: A41.51 Sepsis due to Escherichia coli [E. coli] (principal); G93.41 Metabolic encephalopathy; N39.0 Urinary tract infection, site not specified; I50.32 Chronic diastolic (congestive) heart failure; I13.0 Hypertensive heart and chronic kidney disease with heart failure and stage 1 through stage 4 chronic kidney disease, or unspecified chronic kidney disease; N17.9 Acute kidney failure, unspecified; Z16.24 Resistance to multiple antibiotics; J44.9 Chronic obstructive pulmonary disease, unspecified; K21.9 Gastro-esophageal reflux disease without esophagitis; E03.9 Hypothyroidism, unspecified; N18.30 Chronic kidney disease, stage 3 unspecified; F32.A Depression, unspecified; F41.9 Anxiety disorder, unspecified; F43.10 Post-traumatic stress disorder, unspecified; E66.01 Morbid (severe) obesity due to excess calories; Z88.5 Allergy status to narcotic agent; Z88.2 Allergy status to sulfonamides; Z88.8 Allergy status to other drugs, medicaments and biological substances; Z91.011 Allergy to milk products; Z79.899 Other long term (current) drug therapy; Z79.51 Long term (current) use of inhaled steroids; Z90.49 Acquired absence of other specified parts of digestive tract; Z98.890 Other specified postprocedural states; Z87.891 Personal history of nicotine dependence; Z88.0 Allergy status to penicillin
CPT/HCPCS: 36415; 36416; 51702; 70450; 71045; 74177; 80048; 80053; 81001; 83605; 83880; 84484; 85025; 85610; 85730; 86850; 86900; 86901; 87040; 87077; 87086; 87186; 93005; 96365; 96366; 96367; J0692; J2185; J3370; J3490; Q9967

== ENCOUNTER 2023-03-18 07:32 | Emergency (ER) | payer MEDICARE, MEDICAID ==
[2023-03-18 08:19] LABS: #Basophils 0.1 thou/uL (0.0-0.2); #Eosinphils 0.2 thou/uL (0.0-0.7); #Monocytes 1.2 thou/uL (0.11-0.59); #Neutrophils 8.2 thou/uL (1.40-6.50); %Basophils 0.5 % (0.0-1.0); %Eosinophils 1.5 % (0.0-10.0); %Lymphocytes 22.7 % (21.0-51.0); %Monocytes 9.5 % (0.0-10.0); %Neutrophils 65.3 % (42.0-75.0); Mean Corpuscular HGB CONC 32.5 g/dL (32.0-36.0); Mean Corpuscular Hemoglobin 28.3 pg (27.0-31.0); Mean Corpuscular Volume 87.1 fl (78.0-98.0); Mean Platelet Volume 11.5 fL (7.4-10.4); Platelet Count 345 10x3/uL (130-400); RBC Distribution Width 14.6 % (11.5-14.5); Red Blood Cell (RBC) Count 4.59 mill/uL (4.20-5.40); White Blood Cell (WBC) Count 12.5 10x3/uL (4.8-10.8)
[2023-03-18 08:35] LABS: Bacteria/HPF None Seen HPF (None Seen); Bilirubin Negative (Negative); Blood, Urine Negative (Negative); CAUTI Indications for Culture Dysuria,urgency,freq; Clarity Clear (Clear); Glucose, Urine (Dipstick) Normal (Negative); Ketone, Urine Negative (Negative); Leukocyte 75 Leu/uL (Negative); Nitrite Negative (Negative); Protein, Urine (Dipstick) 10 mg/dL (Neg-Trace); RBC/HPF 0-3 HPF (0-3); Specific Gravity, Urine 1.013 (1.002-1.036); Squamous Epithelial None Seen HPF (0-3); Urobilinogen Normal mg/dL (Less than 2)
[2023-03-18 08:36] LABS: Urine Culture Reflex No No
[2023-03-18 08:47] LABS: ALT (SGPT) 18 U/L (8-55); AST (SGOT) 13 U/L (5-34); Albumin 3.1 g/dL (3.4-4.8); Alkaline Phosphatase 91 U/L (40-110); Anion Gap 9 mmol/L (10-20); BUN (Urea Nitrogen) 9 mg/dL (9.8-20.1); Bilirubin, Total 0.8 mg/dL (0.2-1.2); Calc. Creatinine Clearance 0 mL/min (70-130); Calcium 9.5 mg/dL (7.8-10.44); Carbon Dioxide 32 mmol/L (23-31); Chloride 101 mmol/L (98-107); Estimated GFR 66; Globulin 3.8 g/dL (2.4-3.5); Glucose 96 mg/dL (83-110); Potassium 3.2 mmol/L (3.5-5.1); Protein, Total 6.9 g/dL (5.8-8.1); Sodium 139 mmol/L (136-145)
[2023-03-18] MEDS ORDERED: Potassium Bicarbonate/Cit Ac 20 MEQ TAB ONE (09:34)
== END 2023-03-18 11:20 ==
LOC: ERS 07:32
DX: F03.90 Unspecified dementia, unspecified severity, without behavioral disturbance, psychotic disturbance, mood disturbance, and anxiety (principal); E87.6 Hypokalemia; J44.9 Chronic obstructive pulmonary disease, unspecified; I13.0 Hypertensive heart and chronic kidney disease with heart failure and stage 1 through stage 4 chronic kidney disease, or unspecified chronic kidney disease; N18.30 Chronic kidney disease, stage 3 unspecified; I50.9 Heart failure, unspecified; K21.9 Gastro-esophageal reflux disease without esophagitis; Z55.6 Problems related to health literacy; Z87.891 Personal history of nicotine dependence; Z79.899 Other long term (current) drug therapy
CPT/HCPCS: 36415; 51701; 80053; 81001; 83605; 85025; 87086; 93005